=== PATIENT | female | born 1990 | race Caucasian/White ===

== ENCOUNTER → 2016-05-29 | Outpatient (REF) | payer BC | LOC: M LAB REF 13:27 | PROVIDERS: ATTEND Advanced Practice Midwife | DX: R30.0 Dysuria (principal) ==

== ENCOUNTER → 2016-06-14 | Outpatient (REF) | payer OTHER | LOC: M SFHCCLAY 11:43 | PROVIDERS: ATTEND Family Medicine | DX: N39.0 Urinary tract infection, site not specified (principal) ==

== ENCOUNTER → 2016-08-17 | Outpatient (REF) | payer OTHER | LOC: M LAB REF 17:04 | PROVIDERS: ATTEND Advanced Practice Midwife | DX: R30.0 Dysuria (principal) ==

== ENCOUNTER → 2016-09-01 | Outpatient (REF) | payer OTHER ==
[2016-09-04 10:09] LABS: Candida species Negative (Negative); Gardnerella vaginalis Positive (Negative); Trichamonas vaginalis Negative (Negative)
== END ==
LOC: M SMT 16:45
PROVIDERS: ATTEND Specialist
DX: N89.8 Other specified noninflammatory disorders of vagina (principal)

== ENCOUNTER → 2016-09-20 | Outpatient (REF) | payer OTHER ==
[2016-09-20 18:52] LABS: BASO % 0.6 % (0.0-1.0); EOS # 0.1 K/mm3 (0.0-0.50); EOS % 1.7 % (0.0-3.0); LARGE UNSTAINED CELL # 0.1 K/mm3 (0.0-0.4); LARGE UNSTAINED CELL % 2.2 % (0.0-4.0); LYMPH # 1.2 K/mm3 (1.5-6.5); LYMPH % 19.3 % (24.0-44.0); MEAN CORPUSCULAR HEMOGLOBIN 35.3 pg (27.0-33.0); MEAN CORPUSCULAR HGB CONC 33.6 g/dl (32.0-36.5); MEAN CORPUSCULAR VOLUME 104.9 fl (80.0-96.0); MONO # 0.4 K/mm3 (0.0-0.8); MONO % 6.8 % (0.0-5.0); NEUTROPHILS # 3.8 K/mm3 (1.8-7.7); NEUTROPHILS % 69.4 % (36.0-66.0); PLATELET COUNT, AUTOMATED 242 k/mm3 (150-450); RED CELL DISTRIBUTION WIDTH 14.5 % (11.5-14.5); WHITE BLOOD COUNT 5.4 K/mm3 (4.0-10.0)
[2016-09-20 18:54] LABS: FOLATE 16.6 NG/ML; VITAMIN B12 LEVEL 601 PG/ML
[2016-09-20 19:17] LABS: ALBUMIN 4.5 GM/DL (3.2-5.2); ALBUMIN/GLOBULIN RATIO 1.29 (1.00-1.93); ALKALINE PHOSPHATASE 135 U/L (45-117); ALT/SGPT 78 U/L (12-78); ANION GAP 12 MEQ/L (8-16); AST/SGOT 125 U/L (15-37); BILIRUBIN,TOTAL 1.5 MG/DL (0.2-1.0); BLOOD UREA NITROGEN 4 MG/DL (7-18); CALCIUM LEVEL 9.7 MG/DL (8.5-10.1); CARBON DIOXIDE LEVEL 26 MEQ/L (21-32); CHLORIDE LEVEL 96 MEQ/L (98-107); CHOLESTEROL LEVEL 346 MG/DL (<200); GLOMERULAR FILTRATION RATE > 60.0 (>60); GLUCOSE, FASTING 86 MG/DL (70-105); MAGNESIUM LEVEL 1.9 MG/DL (1.8-2.4); POTASSIUM SERUM 3.3 MEQ/L (3.5-5.1); SODIUM LEVEL 134 MEQ/L (136-145); TRIGLYCERIDES LEVEL 97 MG/DL (<150)
[2016-09-20 19:26] LABS: ERYTHROCYTE SEDIMENTATION RATE 3 mm/hr (0-20)
== END ==
LOC: M LABDRAWC 16:28
PROVIDERS: ATTEND Emergency Medicine
DX: R03.0 Elevated blood-pressure reading, without diagnosis of hypertension (principal); K58.0 Irritable bowel syndrome with diarrhea; R00.2 Palpitations; F41.1 Generalized anxiety disorder

== ENCOUNTER → 2016-09-20 | Outpatient (REF) | payer OTHER ==
[2016-09-20 17:59] LABS: CONTROL LINE HCG INT CTR LINE PRESENT
[2016-09-20 18:14] LABS: FREE T4 0.93 NG/DL (0.76-1.46)
== END ==
LOC: M LABDRAWC 16:26
PROVIDERS: ATTEND Advanced Practice Midwife
DX: N91.2 Amenorrhea, unspecified (principal)

== ENCOUNTER → 2016-09-28 | Outpatient (CLI) | payer OTHER ==
--- NOTE | 2016-09-29 06:27 | REP ---
Clinical: Cystitis. Technique: Real time bañuelos scale ultrasound examination of the kidneys using curved array transducer. Findings: The bilateral kidneys are normal in contour, size, echogenicity, and reniform shape without hydronephrosis, nephrolithiasis, cystic or renal mass lesion. No perinephric fluid collections are identified. The bladder is grossly unremarkable and without wall thickening or mass lesion. Right kidney measures 10.2 x 5.3 x 3.9 cm. Left kidney measures 10.6 x 5.1 x 5.7 cm. Impression: Normal renal ultrasound. Signed by Kris Cardona MD 09/29/2016 06:18 A
== END ==
LOC: M RAD 09:00
PROVIDERS: ATTEND Specialist
DX: N30.90 Cystitis, unspecified without hematuria (principal)

== ENCOUNTER 2016-11-02 06:10 | Emergency (ER) | payer OTHER ==
[2016-11-02] MEDS ORDERED: BENT10CA PO (06:20)
[2016-11-02] MEDS ORDERED: PROT1TAB2 PO (06:20)
[2016-11-02] MEDS ORDERED: VITA200016 PO (06:20)
[2016-11-02] MEDS ORDERED: GI COCKTAIL 50ML BTL(HYOSCYAMINE/MAALOX/LIDOCAINE VISCOUS)(1:3:1) PO ONE (07:15)
[2016-11-02] MEDS ORDERED: METOCLOPRAMIDE INJ 10MG/2ML VIAL (J2765) IV ONE (07:15)
[2016-11-02 07:38] LABS: BASO % 0.6 % (0.0-1.0); EOS # 0.1 K/mm3 (0.0-0.50); EOS % 2.4 % (0.0-3.0); LARGE UNSTAINED CELL # 0.1 K/mm3 (0.0-0.4); LARGE UNSTAINED CELL % 1.7 % (0.0-4.0); LYMPH # 0.5 K/mm3 (1.5-6.5); LYMPH % 12.9 % (24.0-44.0); MEAN CORPUSCULAR HEMOGLOBIN 34.3 pg (27.0-33.0); MEAN CORPUSCULAR HGB CONC 33.3 g/dl (32.0-36.5); MONO # 0.4 K/mm3 (0.0-0.8); MONO % 10.4 % (0.0-5.0); NEUTROPHILS # 2.7 K/mm3 (1.8-7.7); PLATELET COUNT, AUTOMATED 160 k/mm3 (150-450); RED CELL DISTRIBUTION WIDTH 13.5 % (11.5-14.5); WHITE BLOOD COUNT 3.7 K/mm3 (4.0-10.0)
[2016-11-02 07:56] LABS: ALBUMIN 4.8 GM/DL (3.2-5.2); ALKALINE PHOSPHATASE 178 U/L (45-117); ALT/SGPT 351 U/L (12-78); ANION GAP 16 MEQ/L (8-16); AST/SGOT 977 U/L (15-37); BILIRUBIN,TOTAL 1.5 MG/DL (0.2-1.0); BLOOD UREA NITROGEN 6 MG/DL (7-18); CARBON DIOXIDE LEVEL 22 MEQ/L (21-32); CHLORIDE LEVEL 97 MEQ/L (98-107); CREATININE FOR GFR 0.54 MG/DL (0.55-1.02); GLOMERULAR FILTRATION RATE > 60.0 (>60); GLUCOSE, FASTING 63 MG/DL (70-105); POTASSIUM SERUM 3.7 MEQ/L (3.5-5.1); SODIUM LEVEL 135 MEQ/L (136-145); TOTAL PROTEIN 8.8 GM/DL (6.4-8.2)
[2016-11-02 08:34] VITALS: BP 144/86
[2016-11-02] MEDS ORDERED: ZOFR4TAB3 PO (08:38)
[2016-11-02] MEDS ORDERED: PYRI1TAB5 PO (08:38)
[2016-11-02] MEDS ORDERED: MACR100C43 PO (08:38)
[2016-11-02] MEDS ORDERED: PHENAZOPYRIDINE 100 MG TAB PO ONE (08:45)
[2016-11-02] MEDS ORDERED: NITROFURANTOIN (MACROBID) 100 MG CAP PO ONE (08:45)
[2016-11-27] MEDS ORDERED: VITA1CAP40 PO (15:15)
[2016-11-27] MEDS ORDERED: DEXI60CA2 PO (15:15)
== END 2016-11-02 09:08 | disposition home or self-care (01) ==
LOC: M ED 06:10
DX: N39.0 Urinary tract infection, site not specified (principal); R11.2 Nausea with vomiting, unspecified; R19.7 Diarrhea, unspecified; R74.8 Abnormal levels of other serum enzymes
CPT/HCPCS: 80053; 81001; 81025; 83690; 85025; 87086; 96374; 99283; J2765

== ENCOUNTER 2016-12-05 13:00 | Outpatient (CLI) | payer OTHER ==
[~2016-12-05] VITALS: Ht 160 cm; Wt 64.4 kg
[~2016-12-05 13:00] MED LIST: BENT10CA PO; DEXI60CA2 PO; MACR100C43 PO; PROT1TAB2 PO; PYRI1TAB5 PO; VITA1CAP40 PO; VITA200016 PO; ZOFR4TAB3 PO
[2016-12-05] MEDS ORDERED: NS 1,000 ML IV ONE (13:30)
[2016-12-05] MEDS ORDERED: PROPOFOL 500 MG/50 ML VIAL As Ordered ONE (14:54)
[2016-12-05] MEDS ORDERED: LIDOCAINE 2% INJ 100 MG/5 ML SDV (FOR ANES.) As Ordered ONE (15:37)
[2016-12-05] MEDS ORDERED: PROPOFOL 200 MG/20 ML VIAL As Ordered ONE (15:43)
--- NOTE | 2016-12-05 15:45 | ROOR ---
Patient Name: Ashli Finney Procedure Date: 12/05/2016 3:24 PM Date of : 1990 Age: 26 Room: [facility] Gender: Female Note Status: Finalized Procedure: Upper GI endoscopy Indications: Epigastric abdominal pain, Dysphagia, Heartburn, Abdominal bloating, Diarrhea Providers: Rex MCKINNEY MD Referring MD: NAZIA GAMA MD Requesting Provider: Medicines: Monitored Anesthesia Care Complications: No immediate complications. Procedure: Pre-Anesthesia Assessment: - The heart rate, respiratory rate, oxygen saturations, blood pressure, adequacy of pulmonary ventilation, and response to care were monitored throughout the procedure. The Endoscope was introduced through the mouth, and advanced to the second part of duodenum. The upper GI endoscopy was accomplished without difficulty. The patient tolerated the procedure well. Findings: The esophagus was normal. The stomach was normal. The examined duodenum was normal. No endoscopic abnormality was evident in the esophagus to explain the patient's complaint of dysphagia. It was decided, however, to proceed with dilation of the entire esophagus. The scope was withdrawn. Dilation was performed with a Jane dilator with no resistance at 54 Fr. The dilation site was examined and showed no change. This was biopsied with a cold forceps for evaluation of eosinophilic esophagitis. Biopsies for histology were taken with a cold forceps in the second portion of the duodenum for evaluation of celiac disease. Impression: - Normal esophagus. No endoscopic esophageal abnormality to explain patient's dysphagia. Esophagus Dilated with 54 F Jane dilator and biopsied to r/o eosinophilic esophagitis.. - Normal stomach. - Normal examined duodenum. - Biopsies were taken with a cold forceps for evaluation of celiac disease. Recommendation: - Continue present medications. - Telephone endoscopist for pathology results in 2 weeks. - Observe patient's clinical course. Rex Mckinney MD Rex MCKINNEY MD 12/05/2016 3:45:11 PM This report has been signed electronically. Number of Addenda: 0 Note Initiated On: 12/05/2016 3:24 PM Estimated Blood Loss: Estimated blood loss: none.
--- NOTE | 2016-12-05 15:55 | ROOR ---
Patient Name: Ashli Finney Procedure Date: 12/05/2016 3:25 PM Date of : 1990 Age: 26 Room: [facility] Gender: Female Note Status: Finalized Procedure: Colonoscopy Indications: Hematochezia, Suspected irritable bowel syndrome Providers: Rex PADRON MD Referring MD: NAZIA GAMA MD Requesting Provider: Medicines: Monitored Anesthesia Care Complications: No immediate complications. Procedure: Pre-Anesthesia Assessment: - The heart rate, respiratory rate, oxygen saturations, blood pressure, adequacy of pulmonary ventilation, and response to care were monitored throughout the procedure. The Colonoscope was introduced through the anus and advanced to 9 cm into the ileum. The colonoscopy was performed without difficulty. The patient tolerated the procedure well. The quality of the bowel preparation was good. Findings: The perianal and digital rectal examinations were normal. Small Internal Hemorrhoids. The entire examined colon appeared normal on direct and retroflexion views. The terminal ileum appeared normal. Impression: - Small Internal Hemorrhoids. - The entire examined colon is normal on direct and retroflexion views. - The examined portion of the ileum was normal. - No specimens collected. Recommendation: - Continue present medications. - Use fiber, for example Citrucel, Fibercon, Konsyl or Metamucil. - Return to referring physician as previously scheduled. Rex Padron MD Rex PADRON MD 12/05/2016 3:54:41 PM This report has been signed electronically. Number of Addenda: 0 Note Initiated On: 12/05/2016 3:25 PM Estimated Blood Loss: Estimated blood loss: none.
[2016-12-05 16:15] VITALS: BP 137/90
== END 2016-12-05 16:22 | disposition home or self-care (01) ==
LOC: M OPP 13:00
PROVIDERS: ATTEND Internal Medicine Gastroenterology
DX: K64.8 Other hemorrhoids (principal); R19.7 Diarrhea, unspecified; R13.10 Dysphagia, unspecified; R14.0 Abdominal distension (gaseous); K21.9 Gastro-esophageal reflux disease without esophagitis; Z79.899 Other long term (current) drug therapy; Z88.0 Allergy status to penicillin; Z88.1 Allergy status to other antibiotic agents; Z88.2 Allergy status to sulfonamides

== ENCOUNTER 2017-08-19 20:38 | Inpatient (IN) | payer OTHER, SELFPAY ==
[2017-08-19] MEDS: NS 1,000 ML IV (21:00)
[2017-08-19 21:02] LABS: BEDSIDE GLUCOSE 118 MG/DL (70-105)
[2017-08-19 21:09] LABS: BASO % 0.2 % (0.0-1.0); EOS # 0.1 10^3/uL (0.0-0.50); EOS % 1.1 % (0.0-3.0); HEMATOCRIT 41.8 % (36.0-47.0); HEMOGLOBIN 14.4 g/dl (12.0-15.5); IMMATURE GRANULOCYTE % 0.7 % (0-3.0); LYMPH # 0.5 10^3/uL (1.5-6.5); LYMPH % 12.1 % (24.0-44.0); MEAN CORPUSCULAR HEMOGLOBIN 34.5 pg (27.0-33.0); MEAN CORPUSCULAR HGB CONC 34.4 g/dl (32.0-36.5); MEAN CORPUSCULAR VOLUME 100.2 fl (80.0-96.0); MONO # 0.4 10^3/uL (0.0-0.8); MONO % 8.7 % (0.0-5.0); NEUTROPHILS # 3.5 10^3/uL (1.8-7.7); NEUTROPHILS % 77.2 % (36.0-66.0); PLATELET COUNT, AUTOMATED 113 10^3/uL (150-450); RED BLOOD COUNT 4.17 10^6/uL (4.00-5.40); RED CELL DISTRIBUTION WIDTH 13.1 % (11.5-14.5); WHITE BLOOD COUNT 4.5 10^3/uL (4.0-10.0)
[2017-08-19 21:17] LABS: CONTROL LINE HCG INT CTR LINE PRESENT; HCG, SERUM QUALITATIVE NEGATIVE (NEGATIVE); INR 0.98; PROTHROMBIN TIME 13.1 SECONDS (12.4-14.5)
[2017-08-19 21:18] LABS: PARTIAL THROMBOPLASTIN TIME 28.9 SECONDS (26.8-37.9)
[2017-08-19 21:27] LABS: ALBUMIN 4.3 GM/DL (3.2-5.2); ALBUMIN/GLOBULIN RATIO 1.23 (1.00-1.93); ALKALINE PHOSPHATASE 175 U/L (45-117); ALT/SGPT 205 U/L (12-78); ANION GAP 13 MEQ/L (8-16); AST/SGOT 638 U/L (7-37); BLOOD UREA NITROGEN 5 MG/DL (7-18); CALCIUM LEVEL 8.1 MG/DL (8.5-10.1); CARBON DIOXIDE LEVEL 26 MEQ/L (21-32); CHLORIDE LEVEL 99 MEQ/L (98-107); CPK CREATINE PHOSPHOKINASE 170 U/L (26-192); CREATININE FOR GFR 0.67 MG/DL (0.55-1.30); GLOMERULAR FILTRATION RATE > 60.0 (>60); GLUCOSE, FASTING 119 MG/DL (70-100); MAGNESIUM LEVEL 1.1 MG/DL (1.8-2.4); POTASSIUM SERUM 3.1 MEQ/L (3.5-5.1); SODIUM LEVEL 138 MEQ/L (136-145); TOTAL PROTEIN 7.8 GM/DL (6.4-8.2); TROPONIN I < 0.02 NG/ML (< 0.10)
[2017-08-19 21:29] LABS: ETHYL ALCOHOL (ETHANOL) < 0.003 % (0.000-0.010)
[2017-08-19 21:32] LABS: CK-MB VALUE MASS 1.1 NG/ML (<3.6); MB/CK RELATIVE INDEX 0.64 (< OR =4)
[2017-08-19 21:36] LABS: LACTIC ACID SEPSIS PROTOCOL 1.4 MMOL/L (0.4-2.0)
[2017-08-19] MEDS: MAG SULF 1GM/100ML (MAG RUN) 1 GM in APPROPRIATE DILUENT 1 EA IV ×2 (21:53→22:40)
[2017-08-19] MEDS: THIAMINE HCL 200 MG/2 ML VIAL (J3411) IV (21:54)
[2017-08-19] MEDS: POTASSIUM CHLORIDE 10 MEQ SR TABLET PO (21:54)
[2017-08-19] MEDS: FOLIC ACID 1 MG TAB PO (21:55)
[2017-08-19] MEDS: MAGNESIUM OXIDE 400 MG TAB (MAG-OX) PO (23:00)
[2017-08-19] MEDS: KCL 20MEQ IN 0.45NS 1000ML 1,000 ML IV (23:15)
[2017-08-19] MEDS ORDERED: ONDANSETRON 4MG/2ML VIAL (J2405) IV (23:15)
[2017-08-19] MEDS: OXAZEPAM 10 MG CAP PO (23:37)
[2017-08-20 00:11] LABS: AMPHETAMINES LEVEL URINE NEGATIVE (NEGATIVE); BARBITURATES URINE NEGATIVE (NEGATIVE); BENZODIAZEPINES URINE NEGATIVE (NEGATIVE); CANNABINOIDS URINE NEGATIVE (NEGATIVE); COCAINE METABOLITE URINE NEGATIVE (NEGATIVE); METHADONE URINE NEGATIVE (NEGATIVE); OPIATES URINE NEGATIVE (NEGATIVE); PHENCYCLIDINE URINE NEGATIVE (NEGATIVE)
[2017-08-20 06:35] LABS: HEMATOCRIT 38.9 % (36.0-47.0); HEMOGLOBIN 13.4 g/dl (12.0-15.5); MEAN CORPUSCULAR HEMOGLOBIN 34.8 pg (27.0-33.0); MEAN CORPUSCULAR HGB CONC 34.4 g/dl (32.0-36.5); PLATELET COUNT, AUTOMATED 101 10^3/uL (150-450); RED BLOOD COUNT 3.85 10^6/uL (4.00-5.40); RED CELL DISTRIBUTION WIDTH 13.3 % (11.5-14.5); WHITE BLOOD COUNT 4.5 10^3/uL (4.0-10.0)
[2017-08-20 07:01] LABS: ALBUMIN 3.9 GM/DL (3.2-5.2); ALBUMIN/GLOBULIN RATIO 1.03 (1.00-1.93); ALKALINE PHOSPHATASE 162 U/L (45-117); ALT/SGPT 187 U/L (12-78); ANION GAP 11 MEQ/L (8-16); AST/SGOT 540 U/L (7-37); BILIRUBIN,TOTAL 1.8 MG/DL (0.2-1.0); BLOOD UREA NITROGEN 3 MG/DL (7-18); CALCIUM LEVEL 8.1 MG/DL (8.5-10.1); CARBON DIOXIDE LEVEL 23 MEQ/L (21-32); CHLORIDE LEVEL 104 MEQ/L (98-107); CK-MB VALUE MASS < 1.0 NG/ML (<3.6); CPK CREATINE PHOSPHOKINASE 185 U/L (26-192); CREATININE FOR GFR 0.46 MG/DL (0.55-1.30); GLOMERULAR FILTRATION RATE > 60.0 (>60); GLUCOSE, FASTING 76 MG/DL (70-100); MAGNESIUM LEVEL 2.2 MG/DL (1.8-2.4); MB/CK RELATIVE INDEX 0.54 (< OR =4); POTASSIUM SERUM 3.8 MEQ/L (3.5-5.1); SODIUM LEVEL 138 MEQ/L (136-145); TOTAL PROTEIN 7.7 GM/DL (6.4-8.2); TROPONIN I < 0.02 NG/ML (< 0.10)
[2017-08-20] MEDS: SENOKOT S TAB PO ×2 (08:51→20:31)
[2017-08-20] MEDS: MAGNESIUM OXIDE 400 MG TAB (MAG-OX) PO ×3 (08:52→20:31)
[2017-08-20] MEDS: THIAMINE 100 MG TAB PO (08:52)
[2017-08-20] MEDS: FOLIC ACID 1 MG TAB PO (08:52)
[2017-08-20] MEDS: MULTIVITAMINS/MINERALS THERAP 1 TAB PO (08:54)
[2017-08-20 11:32] LABS: HEPATITIS B SURFACE ANTIGEN NEGATIVE (NEGATIVE)
[2017-08-20 11:59] LABS: HEPATITIS C VIRUS ABY INDEX < 0.0 INDEX (<0.8)
[2017-08-20 11:59] LABS: HEPATITIS B CORE ANTIBODY IGM NEGATIVE (NEGATIVE)
[2017-08-20 12:02] LABS: HEPATITIS A ANTIBODY IGM NEGATIVE (NEGATIVE)
[2017-08-20] MEDS: KCL 20MEQ IN 0.45NS 1000ML 1,000 ML IV ×2 (12:16→22:00)
[2017-08-20] MEDS: OXAZEPAM 10 MG CAP PO (20:31)
[2017-08-21 04:27] LABS: HEMATOCRIT 40.1 % (36.0-47.0); HEMOGLOBIN 13.5 g/dl (12.0-15.5); MEAN CORPUSCULAR HEMOGLOBIN 34.7 pg (27.0-33.0); MEAN CORPUSCULAR HGB CONC 33.7 g/dl (32.0-36.5); MEAN CORPUSCULAR VOLUME 103.1 fl (80.0-96.0); RED BLOOD COUNT 3.89 10^6/uL (4.00-5.40); RED CELL DISTRIBUTION WIDTH 13.2 % (11.5-14.5); WHITE BLOOD COUNT 3.4 10^3/uL (4.0-10.0)
[2017-08-21 04:56] LABS: ALBUMIN 3.6 GM/DL (3.2-5.2); ALBUMIN/GLOBULIN RATIO 0.88 (1.00-1.93); ALKALINE PHOSPHATASE 185 U/L (45-117); ALT/SGPT 204 U/L (12-78); ANION GAP 7 MEQ/L (8-16); AST/SGOT 484 U/L (7-37); BILIRUBIN,TOTAL 1.6 MG/DL (0.2-1.0); BLOOD UREA NITROGEN 3 MG/DL (7-18); CALCIUM LEVEL 8.7 MG/DL (8.5-10.1); CARBON DIOXIDE LEVEL 26 MEQ/L (21-32); CHLORIDE LEVEL 106 MEQ/L (98-107); CREATININE FOR GFR 0.52 MG/DL (0.55-1.30); GLOMERULAR FILTRATION RATE > 60.0 (>60); GLUCOSE, FASTING 86 MG/DL (70-100); POTASSIUM SERUM 3.8 MEQ/L (3.5-5.1); SODIUM LEVEL 139 MEQ/L (136-145); TOTAL PROTEIN 7.7 GM/DL (6.4-8.2)
[2017-08-21 05:05] LABS: PLATELET COUNT, AUTOMATED 96 10^3/uL (150-450)
[2017-08-21 05:06] LABS: IMMATURE PLATELET FRACTION % 12.1 % (0.0-9.6)
[2017-08-21] MEDS: KCL 20MEQ IN 0.45NS 1000ML 1,000 ML IV (07:38)
[2017-08-21] MEDS: MAGNESIUM OXIDE 400 MG TAB (MAG-OX) PO (08:24)
[2017-08-21] MEDS: THIAMINE 100 MG TAB PO (08:24)
[2017-08-21] MEDS: FOLIC ACID 1 MG TAB PO (08:25)
[2017-08-21] MEDS: SENOKOT S TAB PO (09:00)
[2017-08-21] MEDS ORDERED: PRENATAL VITAMINS CHEWABLE TABLET PO (09:00)
== END 2017-08-21 11:00 | disposition home or self-care (01) | DRG 53 ==
LOC: M ICU 08-20 05:53 → M ED 20:38 → M ED INP 23:09
PROVIDERS: Hospitalist
DX: R56.9 Unspecified convulsions (principal); E83.42 Hypomagnesemia; K70.10 Alcoholic hepatitis without ascites; E87.6 Hypokalemia; R74.0 Nonspecific elevation of levels of transaminase and lactic acid dehydrogenase [LDH]; F10.239 Alcohol dependence with withdrawal, unspecified; Z88.0 Allergy status to penicillin; Z88.2 Allergy status to sulfonamides; Z88.1 Allergy status to other antibiotic agents

== ENCOUNTER 2018-03-03 22:06 | Emergency (ER) | payer MEDICAID, OTHER, SELFPAY ==
[~2018-03-03] VITALS: Ht 157.5 cm; Wt 68.2 kg
[~2018-03-03 22:06] MED LIST changes: +FOLI1TAB5 PO; +MAGN400C3 PO; +OXAZ10CA3 PO; +PREN1CHW6 PO; +THIA100TA PO; -VITA1CAP40 PO; +VITA50005 PO; +ZOFR4TAB14 PO; -ZOFR4TAB3 PO
[2018-03-03] MEDS ORDERED: ONDANSETRON 4MG/2ML VIAL (J2405) IV ONE (22:45)
[2018-03-03] MEDS ORDERED: MULTIVITAMIN -ADULT INJECTION 10 ML, THIAMINE INJection 100 MG, FOLIC ACID 1 MG in NS 1... IV ONE (22:45)
[2018-03-03 22:50] LABS: BASO % 0.6 % (0.0-1.0); EOS % 0.1 % (0.0-3.0); HEMATOCRIT 40.1 % (36.0-47.0); HEMOGLOBIN 13.9 g/dl (12.0-15.5); LYMPH # 0.6 10^3/uL (1.5-6.5); LYMPH % 9.1 % (24.0-44.0); MEAN CORPUSCULAR HEMOGLOBIN 34.5 pg (27.0-33.0); MEAN CORPUSCULAR HGB CONC 34.7 g/dl (32.0-36.5); MEAN CORPUSCULAR VOLUME 99.5 fl (80.0-96.0); MONO # 0.3 10^3/uL (0.0-0.8); MONO % 3.7 % (0.0-5.0); NEUTROPHILS # 5.7 10^3/uL (1.8-7.7); NEUTROPHILS % 86.1 % (36.0-66.0); PLATELET COUNT, AUTOMATED 189 10^3/uL (150-450); RED BLOOD COUNT 4.03 10^6/uL (4.00-5.40); WHITE BLOOD COUNT 6.7 10^3/uL (4.0-10.0)
[2018-03-03] MEDS ORDERED: ACETAMINOPHEN 325 MG TAB PO ONE (23:00)
[2018-03-03 23:08] LABS: HCG, SERUM QUALITATIVE NEGATIVE (NEGATIVE)
[2018-03-03] MEDS ORDERED: PHENobarbital INJ 65 MG/ML VIAL (J2560) IV STA ×2 (23:09→23:41)
[2018-03-03 23:36] LABS: ALBUMIN 4.4 GM/DL (3.2-5.2); ALT/SGPT 149 U/L (12-78); BILIRUBIN,DIRECT 0.5 MG/DL (0.0-0.2); BLOOD UREA NITROGEN 7 MG/DL (7-18); CALCIUM LEVEL 8.8 MG/DL (8.5-10.1); CARBON DIOXIDE LEVEL 18 MEQ/L (21-32); CHLORIDE LEVEL 100 MEQ/L (98-107); CREATININE FOR GFR 0.54 MG/DL (0.55-1.30); GLOMERULAR FILTRATION RATE > 60.0 (>60); GLUCOSE, FASTING 80 MG/DL (70-100); LIPASE 112 U/L (73-393); SODIUM LEVEL 138 MEQ/L (136-145); TOTAL PROTEIN 8.3 GM/DL (6.4-8.2)
[2018-03-04] MEDS ORDERED: PHENobarbital INJ 65 MG/ML VIAL (J2560) IV STA (00:30)
[2018-03-04] MEDS ORDERED: NS 1,000 ML IV ONE (01:45)
[2018-03-04 02:30] VITALS: BP 143/90
== END 2018-03-04 02:58 | disposition home or self-care (01) ==
LOC: M ED 22:06
DX: F10.230 Alcohol dependence with withdrawal, uncomplicated (principal); Z88.0 Allergy status to penicillin; Z88.2 Allergy status to sulfonamides; Z88.1 Allergy status to other antibiotic agents; Z79.899 Other long term (current) drug therapy
CPT/HCPCS: 80048; 80076; 83690; 84703; 85025; 96374; 96375; 96376; 99285; J2405; J2560; J3411

== ENCOUNTER 2018-04-29 19:33 | Inpatient (IN) | payer MEDICAID, OTHER, SELFPAY ==
[~2018-04-29] VITALS: Ht 157.5 cm; Wt 67.5 kg
[2018-04-29] MEDS ORDERED: ZOLO50TA PO (19:59)
[2018-04-29] MEDS ORDERED: VITA100T59 PO (19:59)
[2018-04-29 20:11] LABS: HEMATOCRIT 43.1 % (36.0-47.0); HEMOGLOBIN 15.2 g/dl (12.0-15.5); MEAN CORPUSCULAR HEMOGLOBIN 32.5 pg (27.0-33.0); MEAN CORPUSCULAR HGB CONC 35.3 g/dl (32.0-36.5); MEAN CORPUSCULAR VOLUME 92.3 fl (80.0-96.0); PLATELET COUNT, AUTOMATED 357 10^3/uL (150-450); RED BLOOD COUNT 4.67 10^6/uL (4.00-5.40); WHITE BLOOD COUNT 7.2 10^3/uL (4.0-10.0)
[2018-04-29 20:26] LABS: HCG, SERUM QUALITATIVE NEGATIVE (NEGATIVE)
[2018-04-29 20:30] LABS: AMPHETAMINES LEVEL URINE NEGATIVE (NEGATIVE); BARBITURATES URINE NEGATIVE (NEGATIVE); BENZODIAZEPINES URINE NEGATIVE (NEGATIVE); CANNABINOIDS URINE NEGATIVE (NEGATIVE); COCAINE METABOLITE URINE NEGATIVE (NEGATIVE); METHADONE URINE NEGATIVE (NEGATIVE); OPIATES URINE NEGATIVE (NEGATIVE); PHENCYCLIDINE URINE NEGATIVE (NEGATIVE)
[2018-04-29 20:43] LABS: ACETAMINOPHEN LEVEL < 2.0 UG/ML (10.0-30.0); ALBUMIN 4.4 GM/DL (3.2-5.2); ALT/SGPT 53 U/L (12-78); BILIRUBIN,DIRECT 0.1 MG/DL (0.0-0.2); BILIRUBIN,TOTAL 0.4 MG/DL (0.2-1.0); BLOOD UREA NITROGEN 6 MG/DL (7-18); CALCIUM LEVEL 8.6 MG/DL (8.5-10.1); CARBON DIOXIDE LEVEL 25 MEQ/L (21-32); CHLORIDE LEVEL 104 MEQ/L (98-107); CREATININE FOR GFR 0.61 MG/DL (0.55-1.30); ETHYL ALCOHOL (ETHANOL) 0.393 % (0.000-0.010); GLOMERULAR FILTRATION RATE > 60.0 (>60); GLUCOSE, FASTING 93 MG/DL (70-100); POTASSIUM SERUM 3.5 MEQ/L (3.5-5.1); SALICYLATE LEVEL < 1.7 MG/DL (5.0-30.0); SODIUM LEVEL 143 MEQ/L (136-145); TOTAL PROTEIN 8.1 GM/DL (6.4-8.2)
[2018-04-30] MEDS ORDERED: NS 1,000 ML IV ONE ×3 (00:30→03:30)
[2018-04-30] MEDS ORDERED: OXAZEPAM 15 MG CAP PO ONE ×2 (00:30→06:30)
[2018-04-30] MEDS: FOLIC ACID 1 MG TAB PO SCH (09:14)
[2018-04-30] MEDS: MULTIVITAMINS/MINERALS THERAP 1 TAB PO SCH (09:14)
[2018-04-30] MEDS: THIAMINE 100 MG TAB PO SCH ×2 (09:14→21:00)
[2018-04-30] MEDS ORDERED: SERTRALINE HCL 50 MG TAB PO ONE (09:15)
[2018-04-30] MEDS ORDERED: PREN1CHW4 PO (09:41)
[2018-04-30] MEDS ORDERED: ASCO500T PO (09:41)
[2018-04-30] MEDS ORDERED: PROB1CHW7 PO (09:42)
[2018-04-30] MEDS ORDERED: ACETAMINOPHEN TAB 650MG DOSE (2X325MG) PO PRN (10:15)
[2018-04-30] MEDS ORDERED: MAALOX 30 ML SUSP *UDC PO PRN (10:15)
[2018-04-30] MEDS ORDERED: MOM 30ML SUSPENSION UDC PO PRN (10:15)
[2018-04-30 10:58] VITALS: BP 141/90
[2018-04-30 11:58] VITALS: BP_SYST 140; BP_SYST 141; BP_DIAS 90
[2018-04-30] MEDS ORDERED: LORazepam 2 MG TAB PO PRN (12:00)
[2018-04-30] MEDS: ONDANSETRON 4 MG ORAL DISINTEGRATING TAB (Q0162 PER 1MG) PO PRN (12:11)
[2018-04-30] MEDS: LORazepam 2 MG TAB PO PRN (12:11)
[2018-04-30 16:20] VITALS: BP 137/93
[2018-04-30 18:00] VITALS: BP 137/93
[2018-05-01] MEDS: ONDANSETRON 4 MG ORAL DISINTEGRATING TAB (Q0162 PER 1MG) PO PRN (01:38)
[2018-05-01] MEDS: traZODone 50 MG TAB PO PRN ×2 (01:38→21:46)
[2018-05-01 07:00] VITALS: BP 143/95
[2018-05-01 08:15] VITALS: BP 143/95
[2018-05-01] MEDS: FOLIC ACID 1 MG TAB PO SCH (09:01)
[2018-05-01] MEDS: LORazepam 2 MG TAB PO PRN (09:01)
[2018-05-01] MEDS: MULTIVITAMINS/MINERALS THERAP 1 TAB PO SCH (09:01)
[2018-05-01] MEDS: THIAMINE 100 MG TAB PO SCH ×2 (09:01→21:46)
--- NOTE | 2018-05-01 09:39 | HPEPDOC ---
[facility] Medical History & Physical Date of Admission Apr 30, 2018 History and Physical [facility] ATTENDING: Dr. Mahin Mckeon. HPI: 27yoF admitted to [facility] for Unspecified depressive disorder, being medically examined today. No acute medical complaints today. States she recently had cold symptoms but states they are resolving. Reports some clear rhinorrhea, denies ST, cough, fever, chills. Denies any fevers, chills, weakness, fatigue, [place], CP, SOB, cough, palpitations, abdominal pain, N/V/D or changes in bowel or bladder habits. PMHx: Anxiety depression h/o SI h/o UTI Seizure 08/15 possible alcohol withdrawal. Follows with [facility]. PSHX: tonsillectomy/adenoidectomy. 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 ROS: As noted in HPI, otherwise 11pt ROS of systems reviewed and remarkable only for LMP 04/05/18 per pt. PE: GEN: 27yoF, appears stated age. Well-nourished, well developed. No acute distress. Alert and oriented x 3. Pleasant, interactive. HEENT: Normocephalic, atraumatic. Pupils are equal, round, and reactive to light. Extraocular movements are intact. No nystagmus appreciated. Sclera are nonicteric. Conjunctiva without injection. Nose midline. Nasal turbinates without bogginess. EACs both patent BL. TMs both visualized and bañuelos with good cone of light, no bulging or erythema. No facial asymmetry. Moist mucous membranes. Dentition fair. Pharynx pink and moist, no cobblestoning. Neck supple, trachea midline. No lymphadenopathy or thyromegaly appreciated. CHEST: Regular rate and rhythm, +S1, +S2 LUNGS: Clear to auscultation bilaterally. No wheezes, rales, or rhonchi. Breathing appears symmetric and easy. Patient is speaking in full sentences. No accessory muscle use. ABD: Round, soft, non-tender, non-distended. +Bowel sounds throughout. No rebound or guarding. No costovertebral angle tenderness. EXT: Pulses 2+ bilaterally dorsalis pedis and radial. No lower extremity edema appreciated. SKIN: [place], dry, warm. Capillary refill <2sec. No rashes. NEURO: Alert and oriented x 3. Cranial nerves III-XII are intact. No focal deficits appreciated. EKG: pending ABd U/S 08/15 Enlarged echogenic liver compatible with fatty infiltration. A/P:27yoF admitted to [facility] for Unspecified depressive disorder 1. Psych. Plan per Psychiatry. Obtain baseline EKG to assure the safety of psychiatric medications as they can prolong the QT interval. 2. Transaminitis. Recheck CMP in AM. Hepatitis profile neg 08/15. Abd U/S 08/15 Fatty infiltration. Monitor. 3. H/O Seizure 08/15, possible alcohol withdrawal seizure. Follows with [facility]. Pt is not on anticonvulsants as outpt. Monitor. 4. Follow up with PCP on discharge. 5. Substance use. Management per psychiatry. Continue with MVI, Thiamine, and Folic Acid supplementation. 6. Staff member Cortney JARVIS present throughout exam. Vital Signs Vital Signs Date Time Temp Pulse Resp B/P (MAP) Pulse Ox O2 Delivery O2 Flow Rate FiO2 05/01/18 08:15 88 143/95 05/01/18 07:00 99.0 20 04/30/18 10:58 100 Room Air Laboratory Data Labs 24H Laboratory Tests 2 04/30/18 09:18: Ethyl Alcohol Level 0.056H Home Medications Scheduled Ascorbic Acid (Ascorbic Acid) 500 Mg Tab, 500 MG PO DAILY Lactobacillus Acid/Lactobacill (Probiotic Chewable Childr) 1 Chw Chw, 1 CHW PO DAILY Multivitamins/ ( Gummies/Dha & Fo 0.4-32.5 mg) 1 Chw Chw, 1 CHW PO DAILY Sertraline Hcl (Zoloft) 50 Mg Tab, 50 MG PO DAILY Allergies Coded Allergies: Sulfa Antibiotics (Verified Allergy, Intermediate, rash, 11/27/16) Minocycline (Verified Allergy, Mild, rash, 11/27/16) Penicillins (Verified Allergy, Mild, rash, 11/27/16) Mary Lino May 01, 2018 09:39
[2018-05-01 11:15] VITALS: BP 131/82
--- NOTE | 2018-05-01 12:59 | MHHPEPDOC ---
General Date Of Admission: Apr 30, 2018 Legal Status: 9.39 Chief Complaint "depression and SI." History of Present Illness HISTORY OF THE PRESENT ILLNESS: Patient is a 27 -year-old , female, with no previous psychiatric historian who was admitted for depression and SI with plan to either cut her wrists or crash her car due to mostly her sister coming into her life after not having been since the pt was [age] and creating chaos as her sister can create a lot of chaos b/c she looses her temper and acts out over the smallest things. States that she hit her breaking point. Self medicating mood and anxiety with alcohol, 3 bottles/day. Has a history of alcohol use problems and seizures secondary to alcohol withdrawal. Denies alcohol withdrawal symptoms currently. Thought of her family to prevent herself from acting on her suicidal thoughts. States she's been taking zoloft that has been beneficial but not fully that was started at the end of February by PCP at [facility]. States she still feels depressed and anxious about her home situation and stress with her sister but denies SI. Agreeable to increasing zoloft for greater mood and anxiety/improved. Endorses insomnia and anxiety and agreeable to prn trazodone and anxiety. Denies HI, hallucinations/delusions. Feels safe here. Psychiatric Review of Systems Depression (2 or more weeks): depressed mood, insomnia/hypersomnia (insomnia), feelings of worthlesness, difficulty concentrating, suicidal thoughts Darshana (4 or more days of): denies Psychosis: denies PTSD: denies Anxiety: gen/non-specific anxiety, situational anxiety, stressor related anxiety Anxiety/ 6 months or more of: restlessness, keyed up, difficulty concentrating, sleep disturbance Past Psychiatric History Previous Psychiatric Diagnosis: denies Previous Psychiatric Admissions: denies Suicide Attempts: denies Psychiatric Follow-up: denies Psychiatric medications: denies Past Medical History Head Injury: No Seizures: Yes (seizure secondary alcohol withdrawal) Hospitalizations: No Surgeries: No Family Medical/Psychiatric HX Psychiatric Disorders: No Addiction: No Suicide Attemps/Completions: No Addiction History alcohol (2-3 bottle betty, bal 393 on 04/29/18) Social History Childhood: born and raised [place], good childhood, bother (4yrs older) and one sister (15 yrs older) Abuse/Trauma:denies Current Living Situation: lives in [place] with boyfriend with his 3 daughters Education: [employer] 2 yrs and [employer] 3yr and only a few credits short math or education degree. 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 Social Support: family, boyfriend Legal: denies Marital: in committed relationship, 3 step daughters (6 year old twins and an 8y/o) Mental Status Examination General Appearance: well groomed, appears stated age, hospital scubs/clothing Build: average Demeanor: average, other (angry with night nurses as believes they were looking all thru her phone and called her bank b/c routing number in phone) Eye Contact: average Activity: average, anxious Behavior: cooperative, restless Speech: clear, spontaneous, normal volume, reg/rate,rhythm,volume Mood: depressed, anxious Mood anxious Affect: full, appropriate, labile, anxious Thought Process: logical/linear, intact Thought Content (Delusions): denies SI, HI, AVH, paranoia Thought Content (Other): appears paranoid Thought Content (Aggressive): none reported Perception (Hallucinations): none reported Perception (Other): none reported Cognition (Impairment of): none reported Cognition(Intelligence Est.): average Oriented: Awake, Alert, Oriented times three Insight: fair Judgment: Fair Psychosis: Psychotic Perceptions Diagnoses Major Depression recurrent, moderate with paranoia Anxiety Unspecified Alcohol use d/o Assessment Pt depressed and anxious secondary to problems with her sister and in her relationship that she's been self medicating with alcohol as her zoloft is not working fully. Denies alcohol withdrawal symptoms today. Denies SI/HI, hallucinations, delusions. Slightly paranoid regarding night nursing staff. Feels safe here. Initial Treatment Plan 1. Patient was admitted on a 939 status. 2. Complete history was obtained. 3. With patients permission, family will be contacted and database will be expanded. 4. Patients medication regimen will be reviewed and changed accordingly. 5. Patient will be provided with protected environment. 6. Patient will be treated with individual, group, and milieu therapies. 7. Patient will receive supportive psych-education. 8. Discharge planning will commence immediately. 9. Outpatient follow-up treatment will be strongly recommended. 10. The initial treatment plan will focus initially on: * Depression. * Risk for suicide. * Substance abuse. 11. Increase zoloft to 100mg daily. Hydroxyzine 25mg q6hr prn anxeity, trazodone 50mg qhs prn insomnia 12. [facility] protocol for alcohol withdrawal ESTIMATED LENGTH OF STAY: 3-5 DAYS. TIME SPENT COUNSELING AND COORDINATING INITIAL CARE: 60 minutes. Vital Signs Vital Signs Date Time Temp Pulse Resp B/P (MAP) Pulse Ox O2 Delivery O2 Flow Rate FiO2 05/01/18 08:15 88 143/95 05/01/18 07:00 99.0 20 04/30/18 10:58 100 Room Air Medications Scheduled Ascorbic Acid (Ascorbic Acid) 500 Mg Tab, 500 MG PO DAILY, (Reported) Lactobacillus Acid/Lactobacill (Probiotic Chewable Childr) 1 Chw Chw, 1 CHW PO DAILY, (Reported) Multivitamins/ ( Gummies/Dha & Fo 0.4-32.5 mg) 1 Chw Chw, 1 CHW PO DAILY, (Reported) Sertraline Hcl (Zoloft) 50 Mg Tab, 50 MG PO DAILY, (Reported) Allergies Coded Allergies: Sulfa Antibiotics (Verified Allergy, Intermediate, rash, 11/27/16) Minocycline (Verified Allergy, Mild, rash, 11/27/16) Penicillins (Verified Allergy, Mild, rash, 11/27/16) VIOLETA MONAHAN DO May 01, 2018 12:59 pm
[2018-05-01] MEDS ORDERED: SERTRALINE 100 MG TAB PO ONE (13:00)
[2018-05-01 16:50] VITALS: BP 150/90
[2018-05-01] MEDS: hydrOXYzine 25 MG TAB PO PRN (17:14)
--- NOTE | 2018-05-01 17:51 | ECGEPIP ---
Stationary ECG Study [facility] Test Date: 2018-05-01 Pat Name: LILIANA RITCHIE Department: Room: [place] [address] Gender: F Appeals Court Associate Justice: MEY : 1990 Requested By: Mary Lino Order Number: [id number] Reading MD: Rg Kate Measurements Intervals Clarita Rate: 86 P: 51 TN: 163 QRS: 25 QRSD: 82 T: 25 QT: 352 QTc: 423 Interpretive Statements Normal sinus rhythm Slow precordial R-wave progression Nonspecific right precordial ST/T-wave abnormalities from 08/19/17. Electronically Signed On 05-01-2018 17:50:30 EST by Rg Kate
[2018-05-01 18:00] VITALS: BP 150/90
[2018-05-02 06:21] VITALS: BP 132/62
[2018-05-02 07:35] VITALS: BP 132/62
[2018-05-02] MEDS: THIAMINE 100 MG TAB PO SCH ×2 (09:55→20:47)
[2018-05-02] MEDS: SERTRALINE 100 MG TAB PO SCH (09:55)
[2018-05-02] MEDS: MULTIVITAMINS/MINERALS THERAP 1 TAB PO SCH (09:55)
[2018-05-02] MEDS: FOLIC ACID 1 MG TAB PO SCH (09:55)
--- NOTE | 2018-05-02 10:07 | MHIPNPDOC ---
[facility] Progress Note Progress Note DATE OF SERVICE: 05/02/18 HISTORY: Patient is a 27 -year-old , female, with no previous psychiatric historian who was admitted for depression and SI with plan to either cut her wrists or crash her car due to mostly her sister coming into her life after not having been since the pt was [age] and creating chaos as her sister can create a lot of chaos b/c she looses her temper and acts out over the smallest things. States that she hit her breaking point. Self medicating mood and anxiety with alcohol, 3 bottles/day. Has a history of alcohol use problems and seizures secondary to alcohol withdrawal. Denies alcohol withdrawal symptoms currently. Thought of her family to prevent herself from acting on her suicidal thoughts. States she's been taking zoloft that has been beneficial but not fully that was started at the end of February by PCP at [facility]. States she still feels depressed and anxious about her home situation and stress with her sister but denies SI. Agreeable to increasing zoloft for greater mood and anxiety/improved. Endorses insomnia and anxiety and agreeable to prn trazodone and anxiety. Denies HI, hallucinations/delusions. Feels safe here. VITAL SIGNS: See below. NEW TEST RESULTS: See below. CURRENT MEDICATIONS: See below. MENTAL STATUS EXAMINATION: General Appearance: well groomed, appears stated age, hospital scrubs/clothing Build: average Demeanor: average Eye Contact: average Activity: average, anxious Behavior: cooperative, restless Speech: clear, spontaneous, normal volume, reg/rate,rhythm,volume Mood: less depressed and anxious Mood anxious Affect: full, appropriate, less anxious Thought Process: logical/linear, intact Thought Content (Delusions): denies SI, HI, AVH, paranoia Thought Content (Other): none reported Thought Content (Aggressive): none reported Perception (Hallucinations): none reported Perception (Other): none reported Cognition (Impairment of): none reported Cognition(Intelligence Est.): average Oriented: Awake, Alert, Oriented times three Insight: fair Judgment: Fair Psychosis: none reported DIAGNOSES: Major Depression recurrent, moderate with paranoia Anxiety Unspecified Alcohol use d/o ASSESSMENT:Pt seen and states that her mood is better . Spoke with pt about belief night nurses were looking all thru her phone and calling her bank b/c routing number in phone. Told pt that I discussed it with nursing staff yesterday and they were not looking thru her phone but probably just over heard them talking about most likely they're own phones and that the only reason her bank routing number (not the account number) is obtained is for billing purposes. She felt satisfied with the explanation. States she's being social on the milieu and attending groups which is beneficial. States she slept well last night. Feels she is tolerating her medications and they're beneficial. She is attending groups and finding them helpful. She denies insomnia, SI/HI, hallucinations, delusions. Pt feels safe here. MANAGEMENT PLAN: continue current plan Medications: zoloft to 100mg daily Hydroxyzine 25mg q6hr prn anxeity trazodone 50mg qhs prn insomnia CIWA protocol for alcohol withdrawal TIME SPENT: 30 minutes. Vital Signs Vital Signs Date Time Temp Pulse Resp B/P (MAP) Pulse Ox O2 Delivery O2 Flow Rate FiO2 05/02/18 06:21 97.6 87 14 132/62 (85) Room Air 05/01/18 18:00 100 Current Medications Current Medications Acetaminophen (Tylenol Tab) 650 mg Q6HP PRN PO HEADACHE or DISCOMFORT; Start 04/30/18 at 10:15 Al Hydrox/Mg Hydrox/Simethicone (Mylanta) 30 ml Q4HP PRN PO HEARTBURN/INDIGESTION; Start 04/30/18 at 10:15 Folic Acid (Folic Acid) 1 mg DAILY PO Last administered on 05/01/18at 09:01; Start 04/30/18 at 09:00 Home Med (Med Rec Complete!) ASDIRECTED XX ; Start 04/30/18 at 09:45; Stop 04/30/18 at 09:45; Status DC Hydroxyzine HCl (Atarax) 25 mg Q6HP PRN PO ANXIETY Last administered on 05/01/18at 17:14; Start 05/01/18 at 13:00 Lorazepam (Ativan) 2 mg ASDIRECTED PRN PO SEE PROTOCOL Last administered on 05/01/18at 09:01; Start 04/30/18 at 08:00 Lorazepam (Ativan) 2 mg ASDIRECTED PRN PO SEE PROTOCOL; Start 04/30/18 at 12:00; Status Cancel Magnesium Hydroxide (Milk Of Magnesia) 30 ml DAILYPRN PRN PO CONSTIPATION; Start 04/30/18 at 10:15 Multivitamins (Theragram-M) 1 tab DAILY PO Last administered on 05/01/18at 09:01; Start 04/30/18 at 09:00 Ondansetron HCl (Zofran Odt) 4 mg Q6HP PRN PO NAUSEA OR VOMITING Last administered on 05/01/18at 01:38; Start 04/30/18 at 12:00 Sertraline HCl (Zoloft) 100 mg DAILY PO ; Start 05/02/18 at 09:00 Thiamine HCl (Thiamine HCl) 100 mg BID PO Last administered on 05/01/18at 21:46; Start 04/30/18 at 09:00; Stop 05/03/18 at 08:59 Trazodone HCl (Desyrel) 50 mg QHSP PRN PO INSOMNIA Last administered on 05/01/18at 21:46; Start 04/30/18 at 10:15 Allergies Coded Allergies: Sulfa Antibiotics (Verified Allergy, Intermediate, rash, 11/27/16) Minocycline (Verified Allergy, Mild, rash, 11/27/16) Penicillins (Verified Allergy, Mild, rash, 11/27/16) VIOLETA MONAHAN DO May 02, 2018 10:07 am
[2018-05-02 15:35] VITALS: BP 130/72
[2018-05-02 18:00] VITALS: BP 128/77
[2018-05-02] MEDS: traZODone 50 MG TAB PO PRN (20:47)
[2018-05-02] MEDS: hydrOXYzine 25 MG TAB PO PRN (20:47)
[2018-05-03 06:15] VITALS: BP 117/72
--- NOTE | 2018-05-03 08:40 | MHDSPDOC ---
[facility] Discharge Summary Discharge Summary DATE OF ADMISSION: Apr 30, 2018 at 10:11 am DATE OF DISCHARGE: May 03, 2018 DISCHARGE DIAGNOSES: Major Depression recurrent, moderate without psychosis Anxiety Unspecified Alcohol use d/o REASON FOR ADMISSION: Patient is a 27 -year-old , female, with no previous psychiatric historian who was admitted for depression and SI with plan to either cut her wrists or crash her car due to mostly her sister coming into her life after not having been since the pt was [age] and creating chaos as her sister can create a lot of chaos b/c she looses her temper and acts out over the smallest things. States that she hit her breaking point. Self medicating mood and anxiety with alcohol, 3 bottles/day. Has a history of alcohol use problems and seizures secondary to alcohol withdrawal. Denies alcohol withdrawal symptoms currently. Thought of her family to prevent herself from acting on her suicidal thoughts. States she's been taking zoloft that has been beneficial but not fully that was started at the end of February by PCP at [facility]. States she still feels depressed and anxious about her home situation and stress with her sister but denies SI. Agreeable to increasing zoloft for greater mood and anxiety/improved. Endorses insomnia and anxiety and agreeable to prn trazodone and anxiety. Denies HI, hallucinations/delusions. Feels safe here. CONSULTANTS INVOLVED: none TREATMENT AND PROGRESS ON THE UNIT : Pt was admitted to [facility], seen for psychiatric assessment and her outpatient zoloft was increased to 100mg daily for mood and anxiety. She was provided vistaril 25mg q6hr prn anxiety and trazodone 50mg qhs prn insomnia. She was monitored for alcohol withdrawal symptoms and placed on a ciwa protocol during her admission and only required ativan once when admitted to the unit for alcohol withdrawal. She has been without ativan for over 24hrs and experienced no alcohol withdrawal symptoms. Pt found her medications beneficial and tolerated them well. She attended groups daily during her stay. Her symptoms improved with treatment. On day of discharge she denied depression, anxiety, insomnia, SI/HI, hallucinations, delusions, paranoia, psychosis, alcohol withdrawal symptoms. She was discharged home after family meeting with her boyfriend she lives with with follow-up at [facility]. She felt safe for discharge. DISCHARGE ASSESSMENT: Pt seen and states that her mood is good and that she feels ready to be discharged home . States she's been social on the milieu and attending groups which has been beneficial. States she slept well last night. Feels she is tolerating her medications and they're beneficial. She is attending groups and finding them helpful. She denies depression, anxiety, insomnia, SI/HI, hallucinations, delusions, paranoia, psychosis, alcohol withdrawal symptoms. Pt feels safe to be discharged home today. MENTAL STATUS EXAMINATION ON DISCHARGE: General Appearance: well groomed, appears stated age, hospital scrubs/clothing Build: average Demeanor: average Eye Contact: average Activity: average, calm Behavior: cooperative Speech: clear, spontaneous, normal volume, reg/rate,rhythm,volume Mood: euthymic, full range, bright Mood good Affect: full, appropriate, euthymic, bright Thought Process: logical/linear, intact Thought Content (Delusions): denies SI, HI, AVH, denies paranoia Thought Content (Other): none reported Thought Content (Aggressive): none reported Perception (Hallucinations): none reported Perception (Other): none reported Cognition (Impairment of): none reported Cognition(Intelligence Est.): average Oriented: Awake, Alert, Oriented times three Insight: good Judgment: good Psychosis: none reported MEDICATIONS ON DISCHARGE: zoloft to 100mg daily Hydroxyzine 25mg q6hr prn anxeity trazodone 50mg qhs prn insomnia PLAN/FOLLOWUP ARRANGEMENTS: D/c home with follow-up at [facility]. The amount of time spent in the coordination of care for this patient was approximately 30 minutes. Vital Signs/I&Os Vital Signs Date Time Temp Pulse Resp B/P (MAP) Pulse Ox O2 Delivery O2 Flow Rate FiO2 05/03/18 06:15 98.6 72 12 117/72 (87) Room Air 05/01/18 18:00 100 Medications Scheduled Ascorbic Acid (Ascorbic Acid) 500 Mg Tab, 500 MG PO DAILY, (Reported) Lactobacillus Acid/Lactobacill (Probiotic Chewable Childr) 1 Chw Chw, 1 CHW PO DAILY, (Reported) Multivitamins/ ( Gummies/Dha & Fo 0.4-32.5 mg) 1 Chw Chw, 1 CHW PO DAILY, (Reported) Sertraline Hcl (Zoloft) 50 Mg Tab, 50 MG PO DAILY, (Reported) Allergies Coded Allergies: Sulfa Antibiotics (Verified Allergy, Intermediate, rash, 11/27/16) Minocycline (Verified Allergy, Mild, rash, 11/27/16) Penicillins (Verified Allergy, Mild, rash, 11/27/16) VIOLETA MONAHAN DO May 03, 2018 8:40 am
[2018-05-03] MEDS ORDERED: SERT-138 PO (08:42)
[2018-05-03] MEDS ORDERED: TRAZO50TA PO (08:42)
[2018-05-03] MEDS ORDERED: HYDR-3363 PO (08:42)
[2018-05-03] MEDS: SERTRALINE 100 MG TAB PO SCH (08:50)
[2018-05-03] MEDS: FOLIC ACID 1 MG TAB PO SCH (08:50)
[2018-05-03] MEDS: MULTIVITAMINS/MINERALS THERAP 1 TAB PO SCH (08:50)
== END 2018-05-03 11:45 | disposition home or self-care (01) | DRG 751 ==
LOC: M ED 19:33 → M ED INP 04-30 10:11 → M PSY 04-30 10:45
PROVIDERS: ADMIT Psychiatry & Neurology Psychiatry; ATTEND Psychiatry & Neurology Psychiatry
DX: F33.1 Major depressive disorder, recurrent, moderate (principal); R45.851 Suicidal ideations; F10.10 Alcohol abuse, uncomplicated; F41.9 Anxiety disorder, unspecified; Z79.899 Other long term (current) drug therapy; Z88.2 Allergy status to sulfonamides; Z88.0 Allergy status to penicillin; Z88.8 Allergy status to other drugs, medicaments and biological substances

== ENCOUNTER 2018-05-18 14:46 | Observation (INO) | payer MEDICAID ==
[~2018-05-18] VITALS: Ht 160 cm; Wt 64.5 kg
[~2018-05-18 14:46] MED LIST changes: +ASCO500T PO; +FOLI1TAB11 PO; -FOLI1TAB5 PO; +HYDR-3363 PO; +PREN1CHW4 PO; +PROB1CHW7 PO; +SERT-138 PO; +TRAZO50TA PO; +VITA100T59 PO; +ZOLO50TA PO
[2018-05-18] MEDS ORDERED: ATIV1TAB10 PO (14:53)
[2018-05-18] MEDS ORDERED: LORazepam 2 MG TAB PO PRN (15:30)
[2018-05-18 15:48] LABS: HEMATOCRIT 43.4 % (36.0-47.0); HEMOGLOBIN 15.3 g/dl (12.0-15.5); MEAN CORPUSCULAR HEMOGLOBIN 31.9 pg (27.0-33.0); MEAN CORPUSCULAR HGB CONC 35.3 g/dl (32.0-36.5); MEAN CORPUSCULAR VOLUME 90.4 fl (80.0-96.0); PLATELET COUNT, AUTOMATED 560 10^3/uL (150-450); WHITE BLOOD COUNT 8.6 10^3/uL (4.0-10.0)
[2018-05-18] MEDS ORDERED: FOLIC ACID 1 MG TAB PO ONE (16:00)
[2018-05-18 16:03] LABS: HCG, SERUM QUALITATIVE NEGATIVE (NEGATIVE)
[2018-05-18 16:04] LABS: AMPHETAMINES LEVEL URINE NEGATIVE (NEGATIVE); BARBITURATES URINE NEGATIVE (NEGATIVE); BENZODIAZEPINES URINE NEGATIVE (NEGATIVE); CANNABINOIDS URINE NEGATIVE (NEGATIVE); COCAINE METABOLITE URINE NEGATIVE (NEGATIVE); METHADONE URINE NEGATIVE (NEGATIVE); OPIATES URINE NEGATIVE (NEGATIVE); PHENCYCLIDINE URINE NEGATIVE (NEGATIVE)
[2018-05-18 16:24] LABS: ACETAMINOPHEN LEVEL < 2.0 UG/ML (10.0-30.0); ALBUMIN 4.3 GM/DL (3.2-5.2); ALT/SGPT 84 U/L (12-78); BILIRUBIN,DIRECT 0.3 MG/DL (0.0-0.2); BILIRUBIN,TOTAL 0.7 MG/DL (0.2-1.0); BLOOD UREA NITROGEN 10 MG/DL (7-18); CALCIUM LEVEL 8.7 MG/DL (8.5-10.1); CARBON DIOXIDE LEVEL 22 MEQ/L (21-32); CHLORIDE LEVEL 101 MEQ/L (98-107); CREATININE FOR GFR 0.75 MG/DL (0.55-1.30); GLOMERULAR FILTRATION RATE > 60.0 (>60); GLUCOSE, FASTING 87 MG/DL (70-100); POTASSIUM SERUM 3.4 MEQ/L (3.5-5.1); SALICYLATE LEVEL < 1.7 MG/DL (5.0-30.0); SODIUM LEVEL 140 MEQ/L (136-145); THYROID STIMULATING HORMONE 0.729 uIU/ML (0.358-3.740)
[2018-05-18] MEDS ORDERED: HYDR-3363 PO (16:40)
[2018-05-18] MEDS ORDERED: POTASSIUM CHLORIDE 10 MEQ SR TABLET PO ONE ×2 (18:00→19:00)
[2018-05-18] MEDS ORDERED: MAG SULF 1GM/100ML (MAG RUN) 1 GM in APPROPRIATE DILUENT 1 EA IV ONE ×6 (18:00→21:00)
[2018-05-18 18:13] LABS: MAGNESIUM LEVEL 1.7 MG/DL (1.8-2.4)
[2018-05-18] MEDS ORDERED: MULTIVITAMIN -ADULT INJECTION 10 ML, THIAMINE INJection 100 MG, FOLIC ACID 1 MG in NS 1... IV ONE ×2 (18:45→20:25)
[2018-05-18] MEDS ORDERED: ONDANSETRON 4MG/2ML VIAL (J2405) IV ONE (18:45)
[2018-05-18] MEDS ORDERED: chlordiazePOXIDE 25 MG CAP PO SCH (19:00)
[2018-05-18] MEDS ORDERED: LORazepam 2 MG/ML VIAL (J2060) IV PRN (19:00)
[2018-05-18] MEDS ORDERED: hydrOXYzine 25 MG TAB PO PRN (19:00)
[2018-05-18] MEDS ORDERED: ONDANSETRON 4MG/2ML VIAL (J2405) IV PRN (19:00)
--- NOTE | 2018-05-18 20:02 | HPE ---
DATE OF ADMISSION: 05/18/2018 28-year-old female with past medical history of depression and alcoholism, history of alcohol withdrawal seizures, presents to the emergency room for detox. The patient apparently had a shot of Vodka on the way because she felt like she was going into withdrawal, which was also her last drink. She normally drinks two bottles of wine a day. She was given a banana bag and was placed on Clinical Gautier Withdrawal Assessment (CIWA) protocol and given Ativan 2 mg. At this time, she is still tachycardiac, but she appears in mild withdrawal. So she will be admitted for further detox. She was also given a bag of IV magnesium and 40 of by mouth potassium chloride in the emergency room (ER). Again past history of depression, chronic alcoholism. She had drug allergies to MINOCYCLINE, PENICILLIN and SULFA drugs. FAMILY HISTORY: Noncontributory. SOCIAL HISTORY: The patient drinks approximately three bottles of wine a day daily. Denies tobacco or drug use. MEDICATIONS SHE TAKES HOME ARE FOLLOWS: - ascorbic acid 500 mg orally daily - hydroxyzine 25 mg orally every 6 hours as needed - sertraline 100 mg orally daily REVIEW OF SYSTEMS: Negative for all 10 review of systems, except what is mentioned in the history of present illness. Vital signs: Blood pressure is 128/73, heart rate is 110 and regular, respiratory rate is 18, temperature is 99.1, oxygen saturation is 100% on room air. Head: Atraumatic, normocephalic. Neck: Supple. No jugular venous distension (JVD). Lungs: Clear to auscultation. S1, S2 audible. No murmurs appreciated. Abdomen: Soft. Positive bowel sounds. No pedal edema. Skin intact. Neurological examination: The patient wake, alert, oriented times three. LABORATORY: White blood count (WBC) 8.6, hemoglobin 15.3, hematocrit 43.4, platelets are 560,000. Sodium 140, potassium 3.4, chloride 101, CO2 22, BUN 10, creatinine 0.75, glucose 87, magnesium 1.7, AST 161, ALT 84, thyroid simulating hormone (TSH) is 0.729. Urine toxicology screen was negative. IMPRESSION: 1. Alcohol withdrawal. 2. Hyperkalemia. 3. Hypomagnesemia. PLAN: The patient is to be admitted to the PCU. Will initiate Librium protocol to aid in her detox process. Will replete her potassium, magnesium and continue her preadmission medications.
[2018-05-18] MEDS ORDERED: THIAMINE 100 MG TAB PO SCH (21:00)
[2018-05-18 21:05] VITALS: BP 130/88
[2018-05-18 22:00] VITALS: BP 129/75
[2018-05-18 22:56] VITALS: BP 129/75
[2018-05-19] VITALS (10 sets, daily range): BP systolic 117–139; BP diastolic 63–84
[2018-05-19] MEDS: chlordiazePOXIDE 25 MG CAP PO SCH ×5 (01:13→19:18)
[2018-05-19] MEDS: NS 1,000 ML IV SCH ×4 (02:54→19:25)
[2018-05-19 06:28] LABS: BLOOD UREA NITROGEN 7 MG/DL (7-18); CALCIUM LEVEL 7.7 MG/DL (8.5-10.1); CARBON DIOXIDE LEVEL 22 MEQ/L (21-32); CHLORIDE LEVEL 105 MEQ/L (98-107); CREATININE FOR GFR 0.52 MG/DL (0.55-1.30); GLOMERULAR FILTRATION RATE > 60.0 (>60); GLUCOSE, FASTING 52 MG/DL (70-100); POTASSIUM SERUM 3.4 MEQ/L (3.5-5.1); SODIUM LEVEL 139 MEQ/L (136-145)
[2018-05-19] MEDS ORDERED: POTASSIUM CHLORIDE 10 MEQ SR TABLET PO ONE (07:15)
[2018-05-19 07:31] LABS: MAGNESIUM LEVEL 2.2 MG/DL (1.8-2.4)
[2018-05-19] MEDS ORDERED: FOLIC ACID 1 MG TAB PO SCH ×2 (09:00)
[2018-05-19] MEDS ORDERED: SERTRALINE 100 MG TAB PO SCH (09:00)
[2018-05-19] MEDS ORDERED: THIAMINE 100 MG TAB PO SCH (09:00)
[2018-05-19] MEDS ORDERED: MULTIVITAMINS/MINERALS THERAP 1 TAB PO SCH ×2 (09:00)
[2018-05-19] MEDS ORDERED: ASCORBIC ACID 500 MG TAB PO SCH (09:00)
--- NOTE | 2018-05-19 13:43 | IPNPDOC ---
Text Note Date of Service The patient was seen on 05/19/18. NOTE Subjective: Patient is a 28-year-old female with a PMHx of Depression and chronic alcoholism who presented to the emergency room after she wanted to receive detox for her alcohol. Patient was admitted to the hospital service for further evaluation and treatment. Patient was seen and examined at the bedside. Patient denies any nausea, vomiting, abdominal pain, constipation, diarrhea or discomfort with urination. She denies chest pain, shortness breath, palpitations. She notes that her tremors have been improving. Objective: Vitals (See below) General: Lying in bed, no acute distress, comfortable, AAOx3 HEENT: NC, AT CVS: RRR, +S1S2 Lungs: Fair air entry b/l, -w/r/r Abdomen: Soft, ND, NT Extremities: - Edema, - Calf tenderness Assessment and plan: Alcohol withdrawal - Currently patient notes that her tremors have been improving - Physical without any abnormal findings - Labs unrevealing - c/w Librium taper Tachycardia / Hypertension - Review of systems negative for any source of infection - Patient remains afebrile and hemodynamically stable - No leukocytosis - c/w IV fluid hydration - Will start low dose Metoprolol Alcohol dependence - c/w Thiamine, Folate, MVI Electrolyte abnormalities - Will supplement Depression - c/w Sertraline DVT prophylaxis - c/w SCDs VS,Fishbone, I+O VS, Fishbone, I+O Laboratory Tests 05/18/18 15:42 Red Blood Count 4.80, Mean Corpuscular Volume 90.4, Mean Corpuscular Hemoglobin 31.9, Mean Corpuscular Hemoglobin Concent 35.3, Red Cell Distribution Width 12.4 05/19/18 04:39 Calcium Level 7.7 L Vital Signs Date Time Temp Pulse Resp B/P (MAP) Pulse Ox O2 Delivery O2 Flow Rate FiO2 05/19/18 12:00 97 120/73 05/19/18 11:56 99.7 18 99 Room Air I&O- Last 24 Hours up to 6 AM 05/19/18 06:00 Intake Total 2046.2 ml Output Total 0 ml Balance 2046.2 ml LATOYA GRIMES MD May 19, 2018 13:43
[2018-05-19] MEDS: METOPROLOL TART 12.5 MG PER 1/2 TAB PO SCH ×2 (13:55→22:03)
[2018-05-19] MEDS ORDERED: chlordiazePOXIDE 25 MG CAP PO SCH ×2 (21:00→23:00)
[2018-05-20] VITALS: BP 130/91
--- NOTE | 2018-05-20 01:46 | IPNPDOC ---
Text Note Date of Service The patient was seen on 05/20/18. NOTE informed by nurse at 1:43 am on 05/20/18 that patient wanted to sign out against medical advice. Pt is alert and oriented X 3 judgement appears intact. Pt is aware of the risk of signing out against medical advise. She was informed of withdrawals, seizures, . Patient acknowledge the risk and chose to sign against medical advice. Pt advised to return to ER with any change in condition. Pt advised to follow up with her primary care provider. VS,Fishbone, I+O VS, Fishbone, I+O Laboratory Tests 05/19/18 04:39 Calcium Level 7.7 L Vital Signs Date Time Temp Pulse Resp B/P (MAP) Pulse Ox O2 Delivery O2 Flow Rate FiO2 05/19/18 22:03 97 117/76 05/19/18 20:00 98.3 20 98 Room Air I&O- Last 24 Hours up to 6 AM 05/20/18 06:00 Intake Total 2040 ml Output Total 1700 ml Balance 340 ml SUNDAY,EASTON ROSALES May 20, 2018 01:46
[2018-05-20] MEDS ORDERED: chlordiazePOXIDE 25 MG CAP PO SCH (21:00)
[2018-05-21] MEDS ORDERED: chlordiazePOXIDE 25 MG CAP PO SCH (23:00)
== END 2018-05-20 01:39 | disposition left against medical advice (07) ==
LOC: M ED 14:46 → M ED INP 18:57 → M PCU 21:04
PROVIDERS: ADMIT Internal Medicine; ATTEND Internal Medicine
DX: F10.239 Alcohol dependence with withdrawal, unspecified (principal); Z53.21 Procedure and treatment not carried out due to patient leaving prior to being seen by health care provider; F32.9 Major depressive disorder, single episode, unspecified; E87.5 Hyperkalemia; E83.42 Hypomagnesemia; Z88.0 Allergy status to penicillin; Z88.2 Allergy status to sulfonamides; Z79.899 Other long term (current) drug therapy
CPT/HCPCS: 36415; 80048; 80076; 80307; 83735; 84443; 84703; 85027; 96361; 96374; 99285; G0480; J2405; J3411; J3475

== ENCOUNTER → 2018-06-10 | Outpatient (REF) | payer OTHER ==
[~2018-06-10] MED LIST changes: +ATIV1TAB10 PO
[2018-06-10 18:16] LABS: BASO % 0.3 % (0.0-1.0); EOS # 0.2 10^3/uL (0.0-0.50); EOS % 2.6 % (0.0-3.0); HEMATOCRIT 41.9 % (36.0-47.0); HEMOGLOBIN 13.7 g/dl (12.0-15.5); LYMPH # 1.6 10^3/uL (1.5-4.5); LYMPH % 27.7 % (24.0-44.0); MEAN CORPUSCULAR HEMOGLOBIN 30.8 pg (27.0-33.0); MEAN CORPUSCULAR HGB CONC 32.7 g/dl (32.0-36.5); MEAN CORPUSCULAR VOLUME 94.2 fl (80.0-96.0); MONO # 0.4 10^3/uL (0.0-0.8); MONO % 7.5 % (0.0-5.0); NEUTROPHILS # 3.5 10^3/uL (1.8-7.7); NEUTROPHILS % 61.6 % (36.0-66.0); PLATELET COUNT, AUTOMATED 356 10^3/uL (150-450); RED BLOOD COUNT 4.45 10^6/uL (4.00-5.40); WHITE BLOOD COUNT 5.7 10^3/uL (4.0-10.0)
[2018-06-10 18:29] LABS: ALBUMIN 4.1 GM/DL (3.2-5.2); ALT/SGPT 36 U/L (12-78); BILIRUBIN,DIRECT 0.1 MG/DL (0.0-0.2); BILIRUBIN,TOTAL 0.5 MG/DL (0.2-1.0); BLOOD UREA NITROGEN 5 MG/DL (7-18); CALCIUM LEVEL 9.2 MG/DL (8.5-10.1); CARBON DIOXIDE LEVEL 29 MEQ/L (21-32); CHLORIDE LEVEL 101 MEQ/L (98-107); CHOLESTEROL LEVEL 322 MG/DL (<200); CHOLESTEROL RISK RATIO 3.926 (<5); CREATININE FOR GFR 0.51 MG/DL (0.55-1.30); FREE T4 0.95 NG/DL (0.76-1.46); GLOMERULAR FILTRATION RATE > 60.0 (>60); GLUCOSE, FASTING 77 MG/DL (70-100); HDL CHOLESTEROL 82 MG/DL (>40); LDL CHOLESTEROL 223 MG/DL (<100); MAGNESIUM LEVEL 1.6 MG/DL (1.8-2.4); NON-HDL-C 240 MG/DL; SODIUM LEVEL 137 MEQ/L (136-145); TOTAL PROTEIN 7.4 GM/DL (6.4-8.2); TRIGLYCERIDES LEVEL 87 MG/DL (<150)
[2018-06-10 18:45] LABS: HEMOGLOBIN A1c 4.8 %
== END ==
LOC: M SFHCCLAY 11:01
PROVIDERS: ATTEND Physician Assistant
DX: R74.8 Abnormal levels of other serum enzymes (principal); E87.5 Hyperkalemia; E83.42 Hypomagnesemia

== ENCOUNTER 2018-09-12 13:16 | Emergency (ER) | payer MEDICAID, OTHER ==
[~2018-09-12] VITALS: Ht 157.5 cm; Wt 68.9 kg
[2018-09-12] MEDS ORDERED: PREN29TA4 PO (14:08)
[2018-09-12] MEDS ORDERED: VENL75CA47 PO (14:08)
[2018-09-12] MEDS ORDERED: ONDANSETRON 4 MG ORAL DISINTEGRATING TAB (Q0162 PER 1MG) PO ONE (14:15)
[2018-09-12] MEDS ORDERED: OXAZEPAM 15 MG CAP PO ONE (14:15)
[2018-09-12 16:08] LABS: ACETAMINOPHEN LEVEL < 2.0 UG/ML (10.0-30.0); ALBUMIN 4.4 GM/DL (3.2-5.2); ALT/SGPT 30 U/L (12-78); BILIRUBIN,DIRECT 0.3 MG/DL (0.0-0.2); BILIRUBIN,TOTAL 1.3 MG/DL (0.2-1.0); BLOOD UREA NITROGEN 11 MG/DL (7-18); CALCIUM LEVEL 9.6 MG/DL (8.5-10.1); CARBON DIOXIDE LEVEL 22 MEQ/L (21-32); CHLORIDE LEVEL 100 MEQ/L (98-107); CREATININE FOR GFR 0.44 MG/DL (0.55-1.30); ETHYL ALCOHOL (ETHANOL) < 0.003 % (0.000-0.010); GLOMERULAR FILTRATION RATE > 60.0 (>60); GLUCOSE, FASTING 81 MG/DL (70-100); POTASSIUM SERUM 4.7 MEQ/L (3.5-5.1); SALICYLATE LEVEL < 1.7 MG/DL (5.0-30.0); SODIUM LEVEL 133 MEQ/L (136-145); THYROID STIMULATING HORMONE 0.946 uIU/ML (0.358-3.740); TOTAL PROTEIN 7.8 GM/DL (6.4-8.2)
[2018-09-12 16:13] VITALS: BP 154/93
[2018-09-12 16:15] LABS: HCG, SERUM QUALITATIVE NEGATIVE (NEGATIVE)
[2018-09-12 16:31] LABS: BASO % 0.2 % (0.0-1.0); HEMOGLOBIN 13.3 g/dl (12.0-15.5); LYMPH # 1.2 10^3/uL (1.5-4.5); LYMPH % 10.7 % (24.0-44.0); MEAN CORPUSCULAR HEMOGLOBIN 29.8 pg (27.0-33.0); MEAN CORPUSCULAR HGB CONC 34.1 g/dl (32.0-36.5); MEAN CORPUSCULAR VOLUME 87.4 fl (80.0-96.0); MONO # 0.5 10^3/uL (0.0-0.8); MONO % 4.2 % (0.0-5.0); NEUTROPHILS # 9.5 10^3/uL (1.8-7.7); NEUTROPHILS % 84.6 % (36.0-66.0); PLATELET COUNT, AUTOMATED 265 10^3/uL (150-450); RED BLOOD COUNT 4.46 10^6/uL (4.00-5.40); WHITE BLOOD COUNT 11.2 10^3/uL (4.0-10.0)
[2018-09-12] MEDS ORDERED: OXAZ15CA4 PO ×2 (16:36→18:10)
[2018-09-12] MEDS ORDERED: ZOFR4TAB16 PO (16:37)
[2018-09-12 17:04] LABS: AMPHETAMINES LEVEL URINE NEGATIVE (NEGATIVE); BARBITURATES URINE NEGATIVE (NEGATIVE); BENZODIAZEPINES URINE NEGATIVE (NEGATIVE); CANNABINOIDS URINE NEGATIVE (NEGATIVE); COCAINE METABOLITE URINE NEGATIVE (NEGATIVE); METHADONE URINE NEGATIVE (NEGATIVE); OPIATES URINE NEGATIVE (NEGATIVE); PHENCYCLIDINE URINE NEGATIVE (NEGATIVE)
== END 2018-09-12 17:13 | disposition home or self-care (01) ==
LOC: M ED 13:16
DX: F10.239 Alcohol dependence with withdrawal, unspecified (principal); F33.9 Major depressive disorder, recurrent, unspecified; Z79.899 Other long term (current) drug therapy; Z88.0 Allergy status to penicillin; Z88.1 Allergy status to other antibiotic agents; Z88.2 Allergy status to sulfonamides
CPT/HCPCS: 36415; 80048; 80076; 80307; 84443; 84703; 85025; 99284; G0480; Q0162

== ENCOUNTER → 2018-09-16 | Outpatient (CLI) | payer MEDICAID ==
[~2018-09-16] MED LIST changes: +OXAZ15CA4 PO; +PREN29TA4 PO; +VENL75CA47 PO; +ZOFR4TAB16 PO
== END ==
LOC: M OUTALCOH 12:36
PROVIDERS: ATTEND Psychiatry & Neurology Psychiatry
DX: F10.20 Alcohol dependence, uncomplicated (principal)

== ENCOUNTER → 2018-09-27 | Outpatient (RCR) | payer MEDICAID | LOC: M OUTALCOH 08:42 | PROVIDERS: ATTEND Psychiatry & Neurology Psychiatry | DX: F10.20 Alcohol dependence, uncomplicated (principal) ==

== ENCOUNTER → 2018-10-02 | Outpatient (REF) | payer OTHER ==
[~2018-10-02] MED LIST changes: +TRAZ1TAB10 PO; -TRAZO50TA PO
[2018-10-02 11:56] LABS: ALBUMIN 3.7 GM/DL (3.2-5.2); ALT/SGPT 29 U/L (12-78); BILIRUBIN,TOTAL 0.2 MG/DL (0.2-1.0); BLOOD UREA NITROGEN 7 MG/DL (7-18); CALCIUM LEVEL 9.4 MG/DL (8.5-10.1); CARBON DIOXIDE LEVEL 29 MEQ/L (21-32); CHLORIDE LEVEL 103 MEQ/L (98-107); CHOLESTEROL LEVEL 267 MG/DL (<200); CHOLESTEROL RISK RATIO 3.034 (<5); CREATININE FOR GFR 0.48 MG/DL (0.55-1.30); GLOMERULAR FILTRATION RATE > 60.0 (>60); GLUCOSE, FASTING 93 MG/DL (70-100); HDL CHOLESTEROL 88 MG/DL (>40); LDL CHOLESTEROL 168 MG/DL (<100); MAGNESIUM LEVEL 2.1 MG/DL (1.8-2.4); NON-HDL-C 179 MG/DL; POTASSIUM SERUM 4.1 MEQ/L (3.5-5.1); SODIUM LEVEL 139 MEQ/L (136-145); TOTAL PROTEIN 7.3 GM/DL (6.4-8.2); TRIGLYCERIDES LEVEL 53 MG/DL (<150)
== END ==
LOC: M SFHCCLAY 09:10
PROVIDERS: ATTEND Physician Assistant
DX: R74.8 Abnormal levels of other serum enzymes (principal); E78.00 Pure hypercholesterolemia, unspecified; E83.42 Hypomagnesemia

== ENCOUNTER 2018-10-24 11:00 | Outpatient (RCR) | payer MEDICAID | END 2018-10-27 | LOC: M OUTALCOH 11:00 | PROVIDERS: ATTEND Psychiatry & Neurology Psychiatry | DX: F10.20 Alcohol dependence, uncomplicated (principal) ==

== ENCOUNTER 2018-11-06 23:14 | Observation (INO) | payer MEDICAID, OTHER ==
[~2018-11-06] VITALS: Ht 157.5 cm; Wt 72.0 kg
[2018-11-06] MEDS ORDERED: CVS1CAP2 PO (23:58)
[2018-11-06] MEDS ORDERED: PROBCAP14 PO (23:58)
[2018-11-07 00:38] LABS: HEMATOCRIT 39.1 % (36.0-47.0); HEMOGLOBIN 13.4 g/dl (12.0-15.5); MEAN CORPUSCULAR HEMOGLOBIN 30.7 pg (27.0-33.0); MEAN CORPUSCULAR HGB CONC 34.3 g/dl (32.0-36.5); MEAN CORPUSCULAR VOLUME 89.7 fl (80.0-96.0); PLATELET COUNT, AUTOMATED 354 10^3/uL (150-450); RED BLOOD COUNT 4.36 10^6/uL (4.00-5.40)
[2018-11-07 01:03] LABS: AMPHETAMINES LEVEL URINE NEGATIVE (NEGATIVE); BARBITURATES URINE NEGATIVE (NEGATIVE); BENZODIAZEPINES URINE NEGATIVE (NEGATIVE); CANNABINOIDS URINE NEGATIVE (NEGATIVE); COCAINE METABOLITE URINE NEGATIVE (NEGATIVE); METHADONE URINE NEGATIVE (NEGATIVE); OPIATES URINE NEGATIVE (NEGATIVE); PHENCYCLIDINE URINE NEGATIVE (NEGATIVE)
[2018-11-07 01:14] LABS: HCG, SERUM QUALITATIVE NEGATIVE (NEGATIVE)
[2018-11-07 01:28] LABS: ACETAMINOPHEN LEVEL < 2.0 UG/ML (10.0-30.0); ALBUMIN 3.8 GM/DL (3.2-5.2); ALT/SGPT 26 U/L (12-78); BILIRUBIN,DIRECT 0.2 MG/DL (0.0-0.2); BILIRUBIN,TOTAL 0.4 MG/DL (0.2-1.0); BLOOD UREA NITROGEN 10 MG/DL (7-18); CALCIUM LEVEL 8.3 MG/DL (8.5-10.1); CARBON DIOXIDE LEVEL 26 MEQ/L (21-32); CHLORIDE LEVEL 102 MEQ/L (98-107); CREATININE FOR GFR 0.79 MG/DL (0.55-1.30); ETHYL ALCOHOL (ETHANOL) 0.293 % (0.000-0.010); GLOMERULAR FILTRATION RATE > 60.0 (>60); GLUCOSE, FASTING 86 MG/DL (70-100); POTASSIUM SERUM 3.8 MEQ/L (3.5-5.1); SALICYLATE LEVEL < 1.7 MG/DL (5.0-30.0); SODIUM LEVEL 139 MEQ/L (136-145); TOTAL PROTEIN 7.5 GM/DL (6.4-8.2)
[2018-11-07] MEDS ORDERED: VENL37.598 PO (02:29)
[2018-11-07] MEDS ORDERED: VENL75CA2 PO (02:29)
[2018-11-07] MEDS ORDERED: MAGN500T2 PO (02:29)
[2018-11-07] MEDS ORDERED: CVS1CHW58 PO (02:29)
[2018-11-07] MEDS ORDERED: [UNRECOGNIZED DRUG - OTHER] PO (02:29)
[2018-11-07] MEDS ORDERED: PRENCHW PO (02:29)
[2018-11-07] MEDS ORDERED: LORazepam 1 MG TAB PO STA (09:28)
[2018-11-07] MEDS ORDERED: VENLAFAXINE 37.5 MG TAB PO ONE (10:00)
[2018-11-07] MEDS ORDERED: ONDANSETRON 4 MG ORAL DISINTEGRATING TAB (Q0162 PER 1MG) As Ordered ONE (10:39)
[2018-11-07] MEDS ORDERED: ONDANSETRON 4 MG ORAL DISINTEGRATING TAB (Q0162 PER 1MG) PO ONE (10:45)
[2018-11-07] MEDS ORDERED: VENLAFAXINE **XR** 37.5 MG CAPSULE PO ONE (11:00)
[2018-11-07] MEDS ORDERED: VENLAFAXINE **XR** 75MG CAPSULE PO ONE (11:00)
[2018-11-07] MEDS ORDERED: LORazepam 2 MG/ML VIAL (J2060) IV STA (11:34)
[2018-11-07] MEDS ORDERED: NS 1,000 ML IV SCH (11:45)
[2018-11-07] MEDS ORDERED: THIAMINE HCL 200 MG/2 ML VIAL (J3411) IM ONE (11:45)
[2018-11-07] MEDS ORDERED: PROMETHAZINE INJ 25 MG/ML VIAL (J2550) IV ONE (12:15)
[2018-11-07] MEDS ORDERED: LORazepam 1 MG TAB PO PRN (13:15)
[2018-11-07] MEDS: NS 1,000 ML IV SCH ×2 (14:35→19:57)
[2018-11-07 16:05] VITALS: BP 141/94
--- NOTE | 2018-11-07 16:25 | HPE ---
DATE OF ADMISSION: 11/07/2018 ATTENDING PHYSICIAN: Dr. Khanna CHIEF COMPLAINT: Alcohol abuse and suicidal attempt. HISTORY OF THE PRESENT ILLNESS: The patient is a 28-year-old white female with a history of depression and suicidal attempt in the past, presented to the emergency room (ER) for evaluation of alcohol abuse as well as suicide attempt. The history is provided by herself. She states she has a history of suicidal attempt last year. For that, she was in the mental health unit for a couple of days back to March of last year. She also stated she is a heavy drinker. She quit and restarted recently, and recently she did not get along with her boyfriend as well as her sister, so she was very angry and upset. She drank a lot of vodka. Today she was trying to take some pills to kill herself, but her boyfriend stopped her and sent her over here for further evaluation. In the ER, she was found to have alcohol intoxication and otherwise no significant findings. She was treated supportively in the ER including intravenous (IV) fluids and Ativan. Meanwhile, medicine service was called for admission. PAST MEDICAL HISTORY: Depression and suicide attempt. PAST SURGICAL HISTORY: Tonsillectomy. ALLERGIES: Allergic to PENICILLIN and SULFA. MEDICATIONS: No routine medications. SOCIAL HISTORY: She denies smoking cigarettes but drinks vodka heavily. Does not use any illicit drugs. FAMILY HISTORY: No family history of depression, or suicidal PHYSICAL EXAMINATION: VITAL SIGNS: Temperature 98.3, heart rate is 124, respiratory rate 18, blood pressure 130/84, oxygen saturation 98% on room air. GENERAL: She is awake, alert, oriented times three. She is not in acute distress. HEENT: Atraumatic. Pupils are equal, round, reactive to light. No jaundice. Extraocular muscles intact. Ears, nose and throat: Normal. Mouth: Mucosa dry. NECK: No jugular venous distention (JVD), no bruits. LUNGS: Clear. No wheezing, no crackles. HEART: S1, S2 regular but tachycardic. No murmur. ABDOMEN: Soft. Bowel sounds positive. Nontender. LOWER EXTREMITIES: No edema in bilateral lower extremities. NEUROLOGIC: Nonfocal. SKIN: No rash. PSYCHOLOGIC: No acute psychosis. DIAGNOSTIC AND LAB STUDIES: CBC and differential showed WBC 8.0, hemoglobin and hematocrit 13.4 over 39, platelets 354. Sodium 139, potassium 3.8, chloride 102, bicarbonate 26, BUN 10, creatinine 0.79, glucose 86. Alcohol level is 0.293. IMPRESSION: 1. Alcohol abuse and intoxication. 2. Suicidal attempt. 3. History of depression. PLAN: The patient will be admitted to medical-surgical floor. I will treat her with intravenous (IV) fluid as well as benzodiazepine (benzo) as needed, and she will be put on one-to-one sitter for safety watch and psychiatry will be consulted tomorrow. She will be admitted for observation. SLADE
[2018-11-07 18:00] VITALS: BP 141/94
[2018-11-07] MEDS: VENLAFAXINE **XR** 75MG CAPSULE PO SCH (18:28)
[2018-11-07] MEDS: VENLAFAXINE **XR** 37.5 MG CAPSULE PO SCH (18:29)
[2018-11-07 22:00] VITALS: BP 128/82
[2018-11-08] VITALS: BP 121/82
[2018-11-08 05:46] LABS: HEMATOCRIT 34.9 % (36.0-47.0); HEMOGLOBIN 11.5 g/dl (12.0-15.5); MEAN CORPUSCULAR HEMOGLOBIN 30.7 pg (27.0-33.0); MEAN CORPUSCULAR VOLUME 93.1 fl (80.0-96.0); PLATELET COUNT, AUTOMATED 224 10^3/uL (150-450); RED BLOOD COUNT 3.75 10^6/uL (4.00-5.40); WHITE BLOOD COUNT 6.8 10^3/uL (4.0-10.0)
[2018-11-08] MEDS: NS 1,000 ML IV SCH (05:50)
[2018-11-08 06:00] VITALS: BP 148/92
[2018-11-08 06:04] LABS: BLOOD UREA NITROGEN 4 MG/DL (7-18); CARBON DIOXIDE LEVEL 29 MEQ/L (21-32); CHLORIDE LEVEL 106 MEQ/L (98-107); CREATININE FOR GFR 0.61 MG/DL (0.55-1.30); GLOMERULAR FILTRATION RATE > 60.0 (>60); GLUCOSE, FASTING 125 MG/DL (70-100); POTASSIUM SERUM 3.4 MEQ/L (3.5-5.1); SODIUM LEVEL 138 MEQ/L (136-145)
[2018-11-08] MEDS: VENLAFAXINE **XR** 37.5 MG CAPSULE PO SCH (08:28)
[2018-11-08] MEDS: VENLAFAXINE **XR** 75MG CAPSULE PO SCH (08:28)
[2018-11-08] MEDS ORDERED: PRENATAL VITAMINS CHEWABLE TABLET PO SCH (09:00)
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
[2018-11-08 14:00] VITALS: BP 139/90
--- NOTE | 2018-11-08 16:09 | IPNPDOC ---
Date Seen The patient was seen on 11/08/18. Progress Note SUBJECTIVE: 28 Y female with history of ETOH, depression presents with etoh abuse and suicidal attempts doing well no events overnight Review of Systems no fever no chills no chest pain no abdominal pain no diarrhea OBJECTIVE PHYSICAL EXAMINATION: VITAL SIGNS: Please see below. GENERAL: AA ox3, not in distress HEENT: atraumatic CARDIOVASCULAR: S1 S2 regular RESPIRATORY: clear ABDOMINAL: soft BS + non tender EXTREMITIES: no edema NEUROLOGICAL: non focal PSYCHOLOGICAL: no acute psychosis LABORATORY DATA, IMAGING STUDIES, MICROBIOLOGY: Please see below. DVT prophylaxis ordered?: yes ASSESSMENT AND PLAN: 1. ETOH abuse advised to quit drinking no evidence of withdrawal 2. suicidal attempt 1 to 1 sitter psych consult pending VS, I&O, 24H, Fishbone Vital Signs/I&O Vital Signs Date Time Temp Pulse Resp B/P (MAP) Pulse Ox O2 Delivery O2 Flow Rate FiO2 11/08/18 14:00 97.9 74 20 139/90 (106) 100 11/07/18 15:41 Room Air I&O- Last 24 Hours up to 6 AM 11/08/18 06:00 Intake Total 3140 ml Output Total 2300 ml Balance 840 ml Laboratory Data 24H LABS Laboratory Tests 2 11/08/18 05:23: Nucleated Red Blood Cells % (auto) 0.0, Anion Gap 3L, Glomerular Filtration Rate > 60.0, Blood Urea Nitrogen 4#L, Creatinine 0.61, Sodium Level 138, Potassium Level 3.4L, Chloride Level 106, Carbon Dioxide Level 29, Calcium Level 8.0L CBC/BMP Laboratory Tests 11/08/18 05:23 Red Blood Count 3.75 L, Mean Corpuscular Volume 93.1, Mean Corpuscular Hemoglobin 30.7, Mean Corpuscular Hemoglobin Concent 33.0, Red Cell Distribution Width 15.3 H, Calcium Level 8.0 L TALAT VARGAS MD Nov 08, 2018 16:09
--- NOTE | 2018-11-08 16:29 | DS.PDOC ---
Discharge Summary General Date of Admission Nov 07, 2018 at 13:09 Date of Discharge 11/08/18 Attending Physician: TALAT VARGAS MD Specialist/Consultants Involve: DAMARIS STAFFORD DO Discharge Summary PROCEDURES PERFORMED DURING STAY: [None]. ADMITTING DIAGNOSES: 1.ETOH abuse 2. suicidal attempt DISCHARGE DIAGNOSES: 1.ETOH abuse 2. suicidal attempt COMPLICATIONS/CHIEF COMPLAINT: Etoh Abuse. HISTORY OF PRESENT ILLNESS: The patient is a 28-year-old white female with a history of depression and suicidal attempt in the past, presented to the emergency room (ER) for evaluation of alcohol abuse as well as suicide attempt. The history is provided by herself. She states she has a history of suicidal attempt last year. For that, she was in the mental health unit for a couple of days back to March of last year. She also stated she is a heavy drinker. She quit and restarted recently, and recently she did not get along with her boyfriend as well as her sister, so she was very angry and upset. She drank a lot of vodka. Today she was trying to take some pills to kill herself, but her boyfriend stopped her and sent her over here for further evaluation. In the ER, she was found to have alcohol intoxication and otherwise no significant findings. She was treated supportively in the ER including intravenous (IV) fluids and Ativan. Meanwhile, medicine service was called for admission. HOSPITAL COURSE: after admission, she was treated supportively including IVF and ativan and she did well. she was consulted with psychiatrist who cleared her; she is go home and will follow her psych therapist next week. DISCHARGE MEDICATIONS: Please see below. ALLERGIES: Please see below. PHYSICAL EXAMINATION ON DISCHARGE: VITAL SIGNS: Please see below. GENERAL: AA Ox3, no stress HEENT: atraumatic NECK: no JVD CARDIOVASCULAR EXAMINATION: S1S2 regular RESPIRATORY EXAMINATION: clear ABDOMINAL EXAMINATION: no tenderness EXTREMITIES: on edema SKIN: no rash NEUROLOGICAL EXAMINATION: non focal PSYCHIATRIC EXAMINATION: no acute psychosis no suicidal LABORATORY DATA: Please see below. ACTIVITY: [As tolerated]. DIET: regular DISPOSITION: home ITEMS TO FOLLOWUP ON ON OUTPATIENT: with psych therapist DISCHARGE CONDITION: [Stable]. TIME SPENT ON DISCHARGE: Greater than 25 minutes. Vital Signs/I&Os Vital Signs Date Time Temp Pulse Resp B/P (MAP) Pulse Ox O2 Delivery O2 Flow Rate FiO2 11/08/18 14:00 97.9 74 20 139/90 (106) 100 11/07/18 15:41 Room Air I&O- Last 24 Hours up to 6 AM 11/08/18 06:00 Intake Total 3140 ml Output Total 2300 ml Balance 840 ml Laboratory Data Labs 24H Laboratory Tests 2 11/08/18 05:23: Nucleated Red Blood Cells % (auto) 0.0, Anion Gap 3L, Glomerular Filtration Rate > 60.0, Blood Urea Nitrogen 4#L, Creatinine 0.61, Sodium Level 138, Potassium Level 3.4L, Chloride Level 106, Carbon Dioxide Level 29, Calcium Level 8.0L CBC/BMP Laboratory Tests 11/08/18 05:23 Red Blood Count 3.75 L, Mean Corpuscular Volume 93.1, Mean Corpuscular Hemoglobin 30.7, Mean Corpuscular Hemoglobin Concent 33.0, Red Cell Distribution Width 15.3 H, Calcium Level 8.0 L Discharge Medications Scheduled Ascorbic Acid (C-500) 500 Mg Tab.chew, 500 MG PO DAILY, (Reported) Bacillus Coagulans (Probiotic) 1 Each Tab.chew, 1 CHW PO DAILY, (Reported) Magnesium Oxide (Magnesium Oxide) 500 Mg Tablet, 500 MG PO DAILY, (Reported) Pnv No.118/Iron Fumarate/FA ( 19 Chewable Tablet) 1 Each Tab.chew, 1 CHW PO DAILY, (Reported) Venlafaxine HCl (Venlafaxine HCl ER) 37.5 Mg Cap.er.24h, 37.5 MG PO DAILY, (Reported) Venlafaxine HCl (Venlafaxine HCl ER) 75 Mg Cap.er.24h, 75 MG PO DAILY, (Reported) Allergies Coded Allergies: Penicillins (Verified Allergy, Mild, rash, 11/06/18) Sulfa (Sulfonamide Antibiotics) (Verified Allergy, Mild, RASH, 11/06/18) minocycline (Verified Allergy, Mild, rash, 11/06/18) TALAT VARGAS MD Nov 08, 2018 16:29
== END 2018-11-08 17:45 | disposition home or self-care (01) ==
LOC: M ED 23:14 → M ED INP 11-07 13:09 → M MSPAV 11-07 15:57
PROVIDERS: ADMIT Hospitalist; ATTEND Hospitalist
DX: F10.220 Alcohol dependence with intoxication, uncomplicated (principal); T14.91XA Suicide attempt, initial encounter; Y92.89 Other specified places as the place of occurrence of the external cause; F32.9 Major depressive disorder, single episode, unspecified; Z91.5 Personal history of self-harm; Z81.8 Family history of other mental and behavioral disorders; Z79.899 Other long term (current) drug therapy; Z88.0 Allergy status to penicillin; Z88.2 Allergy status to sulfonamides; Z88.8 Allergy status to other drugs, medicaments and biological substances
CPT/HCPCS: 36415; 80048; 80076; 80307; 84443; 84703; 85027; 93041; 96372; 96374; 96375; 99285; G0480; J2060; J3411; Q0162

== ENCOUNTER → 2018-11-27 | Outpatient (RCR) | payer MEDICAID ==
[~2018-11-27] MED LIST changes: +CVS1CAP2 PO; +CVS1CHW58 PO; +MAGN500T2 PO; +PRENCHW PO; +PROBCAP14 PO; +VENL37.598 PO; +VENL75CA2 PO; +[UNRECOGNIZED DRUG - OTHER] PO
== END ==
LOC: M OUTALCOH 10-29 14:28
PROVIDERS: ATTEND Psychiatry & Neurology Psychiatry
DX: F10.20 Alcohol dependence, uncomplicated (principal)

== ENCOUNTER 2018-12-23 14:00 | Outpatient (RCR) | payer MEDICAID | END 2018-12-28 | LOC: M OUTALCOH 14:00 | PROVIDERS: ATTEND Psychiatry & Neurology Psychiatry | DX: F10.20 Alcohol dependence, uncomplicated (principal) ==

== ENCOUNTER → 2019-01-07 | Outpatient (REF) | payer MEDICAID ==
[2019-01-10 14:42] LABS: HPV HYBRID CAPTURE II Negative (Negative)
== END ==
LOC: M LAB REF 17:15
PROVIDERS: ATTEND Advanced Practice Midwife
DX: Z12.4 Encounter for screening for malignant neoplasm of cervix (principal)

== ENCOUNTER → 2019-01-16 | Outpatient (CLI) | payer MEDICAID ==
[2019-01-16 16:18] LABS: ESTRADIOL 27.4 PG/ML; FOLLICLE STIMULATING HORMONE 2.8 mIU/mL; LUTEINIZING HORMONE 6.4 mIU/mL; PROLACTIN 19.2 NG/ML
[2019-01-16 16:21] LABS: HEMATOCRIT 37.8 % (36.0-47.0); HEMOGLOBIN 12.9 g/dl (12.0-15.5); MEAN CORPUSCULAR HEMOGLOBIN 30.4 pg (27.0-33.0); MEAN CORPUSCULAR HGB CONC 34.1 g/dl (32.0-36.5); MEAN CORPUSCULAR VOLUME 88.9 fl (80.0-96.0); PLATELET COUNT, AUTOMATED 327 10^3/uL (150-450); RED BLOOD COUNT 4.25 10^6/uL (4.00-5.40)
[2019-01-21 14:27] LABS: 17 HYDROXY PROGESTERONE 28 ng/dL (.); DEHYDROEPIANDROSTERONE SULFATE 91.4 ug/dL (84.8-378.0); INSULIN LEVEL 7.4 uIU/mL (2.6-24.9); TESTOSTERONE FREE (DIRECT) 0.9 pg/mL (0.0-4.2)
== END ==
LOC: M WUC 11:26
PROVIDERS: ATTEND Advanced Practice Midwife
DX: N91.4 Secondary oligomenorrhea (principal)

== ENCOUNTER → 2019-01-27 | Outpatient (RCR) | payer MEDICAID | LOC: M OUTALCOH 01-02 15:39 | PROVIDERS: ATTEND Psychiatry & Neurology Psychiatry | DX: F10.20 Alcohol dependence, uncomplicated (principal) ==

== ENCOUNTER → 2019-02-03 | Outpatient (CLI) | payer MEDICAID | LOC: M WUC 09:58 | PROVIDERS: ATTEND Advanced Practice Midwife | DX: N91.4 Secondary oligomenorrhea (principal) ==

== ENCOUNTER → 2019-02-27 | Outpatient (RCR) | payer MEDICAID | LOC: M OUTALCOH 01-30 15:51 | PROVIDERS: ATTEND Psychiatry & Neurology Psychiatry | DX: F10.20 Alcohol dependence, uncomplicated (principal) ==

== ENCOUNTER → 2019-11-03 | Outpatient (CLI) | payer MEDICAID, OTHER ==
[~2019-11-03] MED LIST changes: +IBUP200C33 PO
== END ==
LOC: M LABSMTC 11:48
PROVIDERS: ATTEND Anesthesiology
DX: Z01.818 Encounter for other preprocedural examination (principal); Z11.59 Encounter for screening for other viral diseases
CPT/HCPCS: C9803; U0002

== ENCOUNTER 2019-11-04 14:34 | Day surgery (SDC) | payer OTHER ==
[~2019-11-04] VITALS: Ht 157.5 cm; Wt 69.8 kg
[~2019-11-04 14:34] MED LIST changes: +CLINDAMYCIN 900 MG in IV 1 EA IV ONE; -IBUP200C33 PO
[2019-11-04] MEDS ORDERED: IBUP200C33 PO (15:45)
[2019-11-04] MEDS ORDERED: fentaNYL 100 MCG/2 ML INJECTION (J3010) As Ordered ONE ×3 (16:19→19:01)
[2019-11-04] MEDS ORDERED: MIDAZOLAM INJ 2MG/2ML VIAL (J2250 PER 1MG) As Ordered ONE ×2 (16:19→17:52)
[2019-11-04] MEDS ORDERED: MIDAZOLAM INJ 2MG/2ML VIAL (J2250 PER 1MG) IV SCH (17:00)
[2019-11-04] MEDS ORDERED: fentaNYL 100 MCG/2 ML INJECTION (J3010) IV SCH (17:15)
[2019-11-04] MEDS ORDERED: dexameTHASONE 4 MG/ML 1ML VIAL (J1100 PER 1MG) As Ordered ONE (17:52)
[2019-11-04] MEDS ORDERED: LIDOCAINE 2% 100MG/5ML SDV (FOR ANES.) As Ordered ONE (17:52)
[2019-11-04] MEDS ORDERED: SUGAMMADEX SODIUM 500 MG/5 ML VIAL (BRIDION) As Ordered ONE (17:52)
[2019-11-04] MEDS ORDERED: ROCURONIUM BROMIDE 50 MG/5 ML VIAL As Ordered ONE (17:52)
[2019-11-04] MEDS ORDERED: propofoL 200 MG/20 ML VIAL As Ordered ONE (17:52)
[2019-11-04] MEDS ORDERED: ONDANSETRON 4MG/2ML VIAL As Ordered ONE (17:52)
[2019-11-04] MEDS ORDERED: ACETAMINOPHEN 1000MG 100ML IV BTL (OFIRMEV) (J0131 PER 10MG) As Ordered ONE (18:00)
[2019-11-04] MEDS ORDERED: PHENYLephrine HCL 500 MCG/5 ML (100MCG/ML) SYRINGE (J2370) As Ordered ONE (18:20)
[2019-11-04] MEDS ORDERED: ONDANSETRON 4MG/2ML VIAL IV PRN (19:30)
[2019-11-04] MEDS ORDERED: METOCLOPRAMIDE INJ 10MG/2ML VIAL (J2765 PER 1) IV PRN (19:30)
[2019-11-04] MEDS ORDERED: LR 1,000 ML IV SCH ×2 (19:30)
[2019-11-04] MEDS ORDERED: fentaNYL 100 MCG/2 ML INJECTION (J3010) IV PRN (19:30)
[2019-11-04 20:51] VITALS: BP 120/70
[2019-11-05] MEDS ORDERED: LR 1,000 ML IV SCH (06:00)
--- NOTE | 2019-11-05 07:28 | REP ---
C-ARM VIEWS RIGHT ANKLE: Multiple C-arm views right ankle performed. There is placement of metallic sideplate and multiple screws in the distal fibula. The osseous structures are well aligned. 51 seconds fluoroscopy time utilized. Electronically Signed by Benitez Pickard MD 11/06/2019 09:18 A
--- NOTE | 2019-11-10 22:41 | RO ---
DATE OF PROCEDURE: 11/04/2019 PREPROCEDURE DIAGNOSIS: Right bimalleolar ankle fracture. POSTPROCEDURE DIAGNOSIS: Right bimalleolar ankle fracture. PROCEDURE: Open reduction internal fixation right ankle. SURGEON: Alisa Guevara MD FLIGHT RADIO OPERATOR: None. ANESTHESIA: General endotracheal with popliteal nerve block. ESTIMATED BLOOD LOSS: 10 mL. COMPLICATIONS: None. CONDITION: Stable to recovery. INDICATIONS: Ashli Finney is a 29-year-old female who sustained a right ankle fracture while on a slip and slide.. She was offered both operative and non-operative management. She has elected for surgery. Risks and benefits of surgery were discussed with the patient in detail and include, but are not limited to, infection, damage to nerves and blood vessels, continued pain and stiffness, need for additional procedures. Informed consent was obtained in the office. DESCRIPTION OF PROCEDURE: The patient was met in the preoperative holding area where the right lower extremity was marked as the correct operative side. She was taken to the post-anesthesia care unit (PACU) where she underwent a popliteal nerve block by the anesthesia team. She was then taken to the operating room where she was placed in the supine position on the operating room table. Bony prominences were well padded. A well-padded tourniquet was placed on the right upper thigh. The patient was prepped and draped in the normal sterile fashion. She was given antibiotics within 60 minutes prior to incision. The right lower extremity was prepped and draped in the normal sterile fashion. An official time-out was held where the correct patient, operative side and operative procedure were verified. The leg was exsanguinated and the tourniquet was inflated to 250 mmHg. It was up for 44 minutes. An incision was made over the posterolateral aspect of the fibula. Careful dissection to the level of the fibula in the fracture site was performed. Care was taken to avoid the superficial peroneal nerve. Fracture was identified and cleaned of hematoma and debris. There was a small amount of comminution laterally. The fracture was then irrigated and reduced using a point of reduction forceps. It was held in place with a 1.25 K-wire. A 3.5 mm lag screw was placed across the fracture site with good compression. X-rays were performed in the AP, mortise and lateral views and were found to show satisfactory reduction and lag screw placement. Following this, a 7-hole plate was selected. It was secured proximally with 3.5 mm cortical screws and distally with 4.0 mm cortical screws. The bone distally was somewhat soft. Next, x-rays were performed in AP, lateral and mortise views and an external rotation stress view was also performed. It was found to be stable. Copious irrigation was performed. Periosteum was closed over the plate distally. Soft tissues were closed with #3-0 Vicryl, and the skin was closed with a running #3-0 nylon. A sterile dressing was applied followed by a well-padded splint. The patient was extubated and transferred to the recovery room in stable condition. PLAN: The patient will be non-weightbearing on the right lower extremity for 6 weeks. I will see her in 2 weeks for suture removal and likely cast placement. She will be on aspirin 81 mg by mouth twice a day for deep vein thrombosis (DVT) prophylaxis.
== END 2019-11-04 21:00 | disposition home or self-care (01) ==
LOC: M SDC 14:34
PROVIDERS: ATTEND Orthopaedic Surgery
DX: S82.841A Displaced bimalleolar fracture of right lower leg, initial encounter for closed fracture (principal); W01.0XXA Fall on same level from slipping, tripping and stumbling without subsequent striking against object, initial encounter; Y92.89 Other specified places as the place of occurrence of the external cause; Y93.9 Activity, unspecified; Y99.9 Unspecified external cause status; F41.9 Anxiety disorder, unspecified; Z88.0 Allergy status to penicillin; Z88.2 Allergy status to sulfonamides; Z88.8 Allergy status to other drugs, medicaments and biological substances; Z91.81 History of falling
CPT/HCPCS: 27814; 64445; 76000; 81025; C1713; J0131; J1100; J2250; J2370; J2405; J3010

== ENCOUNTER → 2020-07-06 | Outpatient (CLI) | payer OTHER ==
[~2020-07-06] MED LIST changes: -CLINDAMYCIN 900 MG in IV 1 EA IV ONE; +IBUP200C33 PO
== END ==
LOC: M WHC 09:45
PROVIDERS: ATTEND Advanced Practice Midwife
DX: Z53.9 Procedure and treatment not carried out, unspecified reason (principal)

== ENCOUNTER → 2020-07-23 | Outpatient (CLI) | payer OTHER ==
--- NOTE | 2020-07-23 11:11 | REPMRS ---
Patient History The patient states she had a clinical breast exam in 06/2020. Patient is nulliparous. Family history of colorectal cancer at age 50 or over in paternal grandmother, breast cancer at age 60 in paternal aunt, ovarian cancer at age 38 in paternal cousin, breast cancer at age 38 in paternal cousin. No Hormone Replacement Therapy Indicated problem(s): right breast nipple abnormality for 6 months. Patient states right nipple itching x6 months, used a steriod creme for 2 weeks itching went away while on it, but once no longer using it the itching came back. Diagnostic Bilateral Mammo: July 23, 2020 - Exam #: [id number] Bilateral CC and MLO view(s) were taken. Technologist: Ani Silverman, Technologist No prior studies available for comparison. FINDINGS: There are scattered fibroglandular densities. The Volpara volumetric breast density category is: B. There is no evidence of dominant mass, architectural distortion, or grouped microcalcification typical of malignancy. 3-D tomosynthesis shows no additional findings. Assessment: BI-RADS/ACR category 1 mammogram. Negative Mammogram. Recommendation Routine screening mammogram of both breasts in 1 year (for women over age 40). This patient's [facility] Lifetime Breast Cancer Risk is estimated at 24.3 %. Annual screening Breast MRI scanniing is recommended for patient's whose lifetime risk assessment is over 20%. This mammogram was interpreted with the aid of an FDA-approved computer-aided dectection system. Electronically Signed By: Woody San MD 07/23/20 [id number]
== END ==
LOC: M WHC 08:53
PROVIDERS: ATTEND Advanced Practice Midwife
DX: N64.59 Other signs and symptoms in breast (principal)
CPT/HCPCS: 77066; G0279

== ENCOUNTER → 2020-08-02 | Outpatient (REF) | payer OTHER, MEDICAID | LOC: M WUC 19:56 | PROVIDERS: ATTEND Physician Assistant | DX: N39.0 Urinary tract infection, site not specified (principal) ==

== ENCOUNTER 2020-09-28 12:25 | Emergency (ER) | payer MEDICAID, OTHER ==
[~2020-09-28] VITALS: Ht 157.5 cm; Wt 73.4 kg
[2020-09-28] MEDS ORDERED: LORazepam 2 MG TAB PO PRN (13:05)
[2020-09-28 13:42] LABS: HEMATOCRIT 40.5 % (36.0-47.0); HEMOGLOBIN 14.3 g/dl (12.0-15.5); MEAN CORPUSCULAR HEMOGLOBIN 31.9 pg (27.0-33.0); MEAN CORPUSCULAR HGB CONC 35.3 g/dl (32.0-36.5); MEAN CORPUSCULAR VOLUME 90.4 fl (80.0-96.0); PLATELET COUNT, AUTOMATED 313 10^3/uL (150-450); RED BLOOD COUNT 4.48 10^6/uL (4.00-5.40); WHITE BLOOD COUNT 11.1 10^3/uL (4.0-10.0)
[2020-09-28] MEDS ORDERED: MULTIVITAMIN -ADULT INJECTION 10 ML, THIAMINE INJection 100 MG, FOLIC ACID 1 MG in NS 1... IV ONE (14:25)
[2020-09-28 14:30] LABS: HCG, SERUM QUALITATIVE NEGATIVE (NEGATIVE)
[2020-09-28 14:36] LABS: ALBUMIN 4.4 GM/DL (3.2-5.2); ALT/SGPT 30 U/L (12-78); BILIRUBIN,DIRECT 0.3 MG/DL (0.0-0.2); BLOOD UREA NITROGEN 11 MG/DL (7-18); CALCIUM LEVEL 9.3 MG/DL (8.5-10.1); CARBON DIOXIDE LEVEL 21 MEQ/L (21-32); CHLORIDE LEVEL 102 MEQ/L (98-107); CREATININE FOR GFR 0.57 MG/DL (0.55-1.30); ETHYL ALCOHOL (ETHANOL) < 0.003 % (0.000-0.010); GLOMERULAR FILTRATION RATE > 60.0 (>60); GLUCOSE, FASTING 67 MG/DL (70-100); SALICYLATE LEVEL < 1.7 MG/DL (5.0-30.0); SODIUM LEVEL 137 MEQ/L (136-145); TOTAL PROTEIN 8.1 GM/DL (6.4-8.2)
[2020-09-28 14:37] LABS: ACETAMINOPHEN LEVEL < 2.0 UG/ML (10.0-30.0)
[2020-09-28 17:03] LABS: AMPHETAMINES LEVEL URINE NEGATIVE (NEGATIVE); BARBITURATES URINE NEGATIVE (NEGATIVE); BENZODIAZEPINES URINE NEGATIVE (NEGATIVE); CANNABINOIDS URINE NEGATIVE (NEGATIVE); COCAINE METABOLITE URINE NEGATIVE (NEGATIVE); METHADONE URINE NEGATIVE (NEGATIVE); OPIATES URINE NEGATIVE (NEGATIVE); PHENCYCLIDINE URINE NEGATIVE (NEGATIVE)
[2020-09-28] MEDS ORDERED: OXAZEPAM 15 MG CAP PO ONE (17:50)
[2020-09-28] MEDS ORDERED: OXAZ30CA2 PO (18:31)
[2020-09-28 18:45] VITALS: BP 152/90
--- NOTE | 2020-09-29 20:37 | ECGEPIP ---
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
== END 2020-09-28 19:12 | disposition home or self-care (01) ==
LOC: M ED 12:25
DX: F10.230 Alcohol dependence with withdrawal, uncomplicated (principal); K21.9 Gastro-esophageal reflux disease without esophagitis; K58.9 Irritable bowel syndrome, unspecified; Z88.0 Allergy status to penicillin; Z88.1 Allergy status to other antibiotic agents; Z88.2 Allergy status to sulfonamides
CPT/HCPCS: 80048; 80076; 80143; 80307; 82077; 84443; 84703; 85027; 93005; 96365; 99285; J3411

== ENCOUNTER 2020-11-15 12:30 | Emergency (ER) | payer MEDICAID, OTHER ==
[~2020-11-15] VITALS: Ht 160 cm; Wt 70.5 kg
[~2020-11-15 12:30] MED LIST changes: +OXAZ30CA2 PO
[2020-11-15] MEDS ORDERED: ONDANSETRON 4MG/2ML VIAL IV ONE (13:50)
[2020-11-15] MEDS ORDERED: NS 1,000 ML IV SCH (13:50)
[2020-11-15] MEDS ORDERED: MORPHINE 4 MG/ML 1ML VIAL/SYRINGE (J2270) IV ONE (13:50)
--- NOTE | 2020-11-15 14:04 | REP ---
INDICATION: Abdominal Pain COMPARISON: None. TECHNIQUE: PA/Lateral FINDINGS: Lungs: Clear, no infiltrate. Heart: Normal in size. Mediastinum: Mediastinal silhouette unremarkable. Pleural angles: Unremarkable.. Bones and soft tissues: Unremarkable. IMPRESSION: No acute pulmonary disease. <Electronically signed by Benitez Pickard > 11/15/20 1736
--- NOTE | 2020-11-15 14:27 | REP ---
INDICATION: RUQ PAIN. COMPARISON: 08/19/2017. TECHNIQUE: Real-time sonographic evaluation of right upper quadrant performed. FINDINGS: The gallbladder demonstrates no evidence of intraluminal sludge or calculi, wall thickening or pericholecystic fluid. There is no intrahepatic or extrahepatic biliary dilatation, common bile duct measures 4 mm in maximum diameter. The liver demonstrates homogeneous echotexture with no gross mass. Visualized pancreas is grossly unremarkable, not optimally seen due to overlying bowel gas. The right kidney demonstrates no hydronephrosis, with a normal size of 10.5 cm in length. No free fluid is seen. IMPRESSION: Negative right upper quadrant ultrasound. <Electronically signed by Benitez Pickard > 11/15/20 1108
[2020-11-15 14:28] LABS: BASO % 0.5 % (0.0-1.0); EOS % 0.3 % (0.0-3.0); HEMATOCRIT 44.8 % (36.0-47.0); HEMOGLOBIN 15.4 g/dl (12.0-15.5); LYMPH # 1.3 10^3/uL (1.5-5.0); LYMPH % 33.3 % (24.0-44.0); MEAN CORPUSCULAR HEMOGLOBIN 31.8 pg (27.0-33.0); MEAN CORPUSCULAR HGB CONC 34.4 g/dl (32.0-36.5); MEAN CORPUSCULAR VOLUME 92.6 fl (80.0-96.0); MONO # 0.4 10^3/uL (0.0-0.8); MONO % 9.1 % (2.0-8.0); NEUTROPHILS # 2.2 10^3/uL (1.5-8.5); NEUTROPHILS % 56.5 % (36.0-66.0); PLATELET COUNT, AUTOMATED 312 10^3/uL (150-450); RED BLOOD COUNT 4.84 10^6/uL (4.00-5.40)
[2020-11-15 14:50] LABS: ALBUMIN 4.4 GM/DL (3.2-5.2); ALT/SGPT 36 U/L (12-78); BILIRUBIN,DIRECT 0.1 MG/DL (0.0-0.2); BILIRUBIN,TOTAL 0.6 MG/DL (0.2-1.0); BLOOD UREA NITROGEN 9 MG/DL (7-18); CALCIUM LEVEL 9.6 MG/DL (8.5-10.1); CARBON DIOXIDE LEVEL 24 MEQ/L (21-32); CHLORIDE LEVEL 103 MEQ/L (98-107); CREATININE FOR GFR 0.48 MG/DL (0.55-1.30); GLOMERULAR FILTRATION RATE > 60.0 (>60); GLUCOSE, FASTING 67 MG/DL (70-100); LIPASE 58 U/L (73-393); POTASSIUM SERUM 4.9 MEQ/L (3.5-5.1); SODIUM LEVEL 138 MEQ/L (136-145); TOTAL PROTEIN 8.3 GM/DL (6.4-8.2)
--- NOTE | 2020-11-15 15:36 | REP ---
INDICATION: RUQ PAIN R/O UROLITHIASIS. COMPARISON: None. TECHNIQUE: Noncontrast scanning through the abdomen and pelvis with coronal and sagittal reconstructions provided. FINDINGS: CT abdomen: Lung bases are clear. The heart is not enlarged and there is no pericardial thickening or effusion. No hiatal hernia. Subtle fat infiltration in the liver compared to the spleen with borderline hepatomegaly at 18 cm vertical diameter in the midclavicular line. No discrete hepatic mass biliary dilatation or adjacent ascites gallbladder without calcified stone or mass. There is no splenomegaly. Pancreas, adrenal glands and kidneys are unremarkable do not see renal stone, hydronephrosis, hydroureter, ureteral stone or inflammatory changes adjacent to the kidneys or ureters. The aorta is without aneurysm. There is no periaortic other retroperitoneal or mesenteric pathologic sized lymph adenopathy. Colon shows no acute inflammatory change mass there just a couple of scattered diverticula. There is no perforation or free air. The bone windows show no compression deformity focal lesion in the spine or visible ribs. CT pelvis: Bone windows show the sacrum, SI joints, pelvis and hips to be unremarkable. There is sacralization of the transverse processes of L5 as anatomic variation. The uterus is anteverted and slightly tilted towards the right. It is not enlarged no adnexal mass or pelvic free fluid. The distal left colon, sigmoid and rectum are unremarkable. Appendix is seen and normal. The bladder shows no wall thickening, mass or stone and is adequately filled. There is no ventral or inguinal hernia nor pathologic sized inguinal adenopathy. IMPRESSION: Some borderline to mild hepatomegaly with fatty infiltration of the liver. No focal hepatic mass or biliary dilatation. No ascites. Kidneys show no stone, hydronephrosis, mass or inflammatory changes in the adjacent fat. Bladder also without stone or other abnormality. Appendix seen and normal. Colon and small bowel loops unremarkable. Otherwise negative CT abdomen and pelvis. <Electronically signed by Denny Urban > 11/15/20 0031
[2020-11-15 16:37] VITALS: BP 143/82
[2020-11-15] MEDS ORDERED: IBUP80TA PO (16:44)
[2020-11-15] MEDS ORDERED: ZOFR4TAB16 PO (16:44)
[2020-11-15 18:30] LABS: ERYTHROCYTE SEDIMENTATION RATE 1 mm/hr (0-20)
[2020-11-15 18:31] LABS: GC DNA AMPLIFICATION NEGATIVE (NEGATIVE)
[2020-11-15 18:32] LABS: C REACTIVE PROTEIN QUANTITATIV < 0.30 MG/DL (0.00-0.30); HEPATITIS A ANTIBODY IGM NEGATIVE (NEGATIVE); HEPATITIS B CORE ANTIBODY IGM NEGATIVE (NEGATIVE); HEPATITIS B SURFACE ANTIGEN NEGATIVE (NEGATIVE); IRON (FE) 197 UG/DL (50-170); RHEUMATOID FACTOR QUANT < 10.0 IU/ML (<15.0)
== END 2020-11-15 17:04 | disposition home or self-care (01) ==
LOC: M ED 12:30
DX: R10.11 Right upper quadrant pain (principal); B19.9 Unspecified viral hepatitis without hepatic coma; R16.0 Hepatomegaly, not elsewhere classified; K76.0 Fatty (change of) liver, not elsewhere classified; R03.0 Elevated blood-pressure reading, without diagnosis of hypertension; J45.909 Unspecified asthma, uncomplicated; G40.909 Epilepsy, unspecified, not intractable, without status epilepticus; K58.9 Irritable bowel syndrome, unspecified; F10.10 Alcohol abuse, uncomplicated; Z88.0 Allergy status to penicillin; Z88.1 Allergy status to other antibiotic agents; Z88.2 Allergy status to sulfonamides
CPT/HCPCS: 71046; 74176; 76705; 80048; 80076; 81001; 83540; 83690; 85025; 85652; 86140; 86431; 86705; 86709; 86803; 87340; 87661; 96361; 96374; 96375; 99284; J2270; J2405

== ENCOUNTER → 2020-11-18 | Outpatient (CLI) | payer OTHER ==
[~2020-11-18] MED LIST changes: +IBUP80TA PO; +PROHANCE 279.3MG/ML 15ML VIAL As Ordered ONE
--- NOTE | 2020-11-18 13:23 | REP ---
INDICATION: HIGH RISK BREAST SCREENING ABNORMALITY BREASTS. COMPARISON: Comparison mammography July 23, 2020. TECHNIQUE: [facility] MRI imaging was performed with a dedicated breast coil. Axial, coronal, and sagittal T1 and T2 weighted scans were obtained with and without fat saturation in the usual fashion. The study includes dynamically acquired post gadolinium-enhanced imaging with image subtraction. Maximum intensity projection and multi planar reformation imaging is included as well. This study is interpreted with the aid of [employer], an FDA approved computer aided detection (CAD) software program, on a dedicated breast MRI workstation. The gadolinium enhancement dose is 14 mL of intravenous ProHance. FINDINGS: There is a mild to moderate amount of fibroglandular tissue bilaterally corresponding with the mammographic pattern. There is minimal background parenchymal enhancement. There is no evidence of axillary lymphadenopathy or significant breast cystic change. High-resolution pre and post-contrast T1 and T2 weighted scans show no suspicious morphologic abnormality in either breast. Dynamically acquired sequential postcontrast images show no suspicious area of enhancement and washout kinetics in either breast to suggest malignancy. Subtraction images show no additional abnormality. IMPRESSION: BI-RADS category 1 negative bilateral breast MRI findings. <Electronically signed by Woody San > 11/18/20 [id number]
== END ==
LOC: M RAD 10:36
PROVIDERS: ATTEND Surgery
DX: L29.9 Pruritus, unspecified (principal); Z91.89 Other specified personal risk factors, not elsewhere classified
CPT/HCPCS: A9576; C8908

== ENCOUNTER → 2020-11-19 | Outpatient (REF) | payer OTHER ==
[~2020-11-19] MED LIST changes: -PROHANCE 279.3MG/ML 15ML VIAL As Ordered ONE
== END ==
LOC: M SFHCWAGY 18:38
PROVIDERS: ATTEND Advanced Practice Midwife
DX: Z12.4 Encounter for screening for malignant neoplasm of cervix (principal)

== ENCOUNTER → 2021-01-19 | Outpatient (REF) | payer OTHER | LOC: M LAB REF 16:22 | PROVIDERS: ATTEND Physician Assistant | DX: J06.9 Acute upper respiratory infection, unspecified (principal) ==

== ENCOUNTER → 2021-02-21 | Outpatient (REF) | payer OTHER ==
[2021-02-21 19:32] LABS: APPEARANCE, URINE CLEAR (CLEAR); BACTERIA, URINE AUTO NEGATIVE (NEGATIVE); BILIRUBIN, URINE AUTO NEGATIVE (NEGATIVE); BLOOD, URINE BLOOD NEGATIVE (NEGATIVE); COLOR, URINE AMBER (YELLOW); GLUCOSE, URINE (UA) AUTO NEGATIVE (NEGATIVE); KETONE, URINE AUTO NEGATIVE (NEGATIVE); LEUKOCYTE ESTERASE, URINE AUTO NEGATIVE (NEGATIVE); NITRITE, URINE AUTO POSITIVE (NEGATIVE); PROTEIN, URINE AUTO NEGATIVE (NEGATIVE); RBC, URINE AUTO 0 /HPF (0-3); SPECIFIC GRAVITY URINE AUTO 1.006 (1.002-1.035); SQUAMOUS EPITHELIAL CELL UR AU 2 /HPF (0-6); WBC, URINE AUTO 3 /HPF (0-3)
== END ==
LOC: M LAB REF 17:25
PROVIDERS: ATTEND Advanced Practice Midwife
DX: R30.0 Dysuria (principal)

== ENCOUNTER → 2021-04-18 | Outpatient (REF) | payer OTHER ==
[2021-04-18 18:03] LABS: APPEARANCE, URINE CLEAR (CLEAR); BACTERIA, URINE AUTO NEGATIVE (NEGATIVE); BILIRUBIN, URINE AUTO NEGATIVE (NEGATIVE); BLOOD, URINE BLOOD NEGATIVE (NEGATIVE); COLOR, URINE AMBER (YELLOW); GLUCOSE, URINE (UA) AUTO NEGATIVE (NEGATIVE); KETONE, URINE AUTO TRACE mg/dL (NEGATIVE); LEUKOCYTE ESTERASE, URINE AUTO TRACE (NEGATIVE); MUCUS, URINE SMALL (NEGATIVE); NITRITE, URINE AUTO NEGATIVE (NEGATIVE); PROTEIN, URINE AUTO 1+ mg/dL (NEGATIVE); RBC, URINE AUTO 1 /HPF (0-3); SQUAMOUS EPITHELIAL CELL UR AU 1 /HPF (0-6); WBC, URINE AUTO 10 /HPF (0-3)
== END ==
LOC: M SFHCWAGY 17:08
PROVIDERS: ATTEND Advanced Practice Midwife
DX: R30.0 Dysuria (principal)

== ENCOUNTER → 2021-04-18 | Outpatient (REF) | payer OTHER | LOC: M PLALAB 13:26 | PROVIDERS: ATTEND Advanced Practice Midwife | DX: Z53.20 Procedure and treatment not carried out because of patient's decision for unspecified reasons (principal) ==

== ENCOUNTER → 2021-07-26 | Outpatient (CLI) | payer OTHER | LOC: M WHC 09:01 | PROVIDERS: ATTEND Surgery | DX: Z12.31 Encounter for screening mammogram for malignant neoplasm of breast (principal); Z80.0 Family history of malignant neoplasm of digestive organs; Z80.3 Family history of malignant neoplasm of breast; Z80.41 Family history of malignant neoplasm of ovary; Z91.89 Other specified personal risk factors, not elsewhere classified ==

== ENCOUNTER → 2021-08-16 | Outpatient (CLI) | payer OTHER ==
[~2021-08-16] MED LIST changes: +BARIUM SULFATE 700 MG TABLET (E-Z-DISK) As Ordered ONE; +E-Z-PAQUE 96% w/w SUSP 176GM BTL As Ordered ONE; +VARIBAR NECTAR 40% w/v 240ML SUSP BTL As Ordered ONE; +VARIBAR PUDDING 40% w/v 230ML TUBE As Ordered ONE
== END ==
LOC: M RAD 09:58
PROVIDERS: ATTEND Otolaryngology
DX: K21.9 Gastro-esophageal reflux disease without esophagitis (principal)

== ENCOUNTER 2021-09-05 20:56 | Emergency (ER) | payer OTHER ==
[~2021-09-05] VITALS: Ht 157.5 cm; Wt 65.0 kg
[~2021-09-05 20:56] MED LIST changes: -BARIUM SULFATE 700 MG TABLET (E-Z-DISK) As Ordered ONE; -E-Z-PAQUE 96% w/w SUSP 176GM BTL As Ordered ONE; -VARIBAR NECTAR 40% w/v 240ML SUSP BTL As Ordered ONE; -VARIBAR PUDDING 40% w/v 230ML TUBE As Ordered ONE
[2021-09-06 00:17] LABS: HEMATOCRIT 36.8 % (36.0-47.0); HEMOGLOBIN 12.7 g/dl (12.0-15.5); MEAN CORPUSCULAR HEMOGLOBIN 32.7 pg (27.0-33.0); MEAN CORPUSCULAR HGB CONC 34.5 g/dl (32.0-36.5); MEAN CORPUSCULAR VOLUME 94.8 fl (80.0-96.0); PLATELET COUNT, AUTOMATED 244 10^3/uL (150-450); RED BLOOD COUNT 3.88 10^6/uL (4.00-5.40); WHITE BLOOD COUNT 5.7 10^3/uL (4.0-10.0)
[2021-09-06 00:31] LABS: RSV AMPLIFICATION NEGATIVE (NEGATIVE)
[2021-09-06 00:31] LABS: AMPHETAMINES LEVEL URINE NEGATIVE (NEGATIVE); BARBITURATES URINE NEGATIVE (NEGATIVE); BENZODIAZEPINES URINE NEGATIVE (NEGATIVE); CANNABINOIDS URINE NEGATIVE (NEGATIVE); COCAINE METABOLITE URINE NEGATIVE (NEGATIVE); METHADONE URINE NEGATIVE (NEGATIVE); OPIATES URINE NEGATIVE (NEGATIVE); PHENCYCLIDINE URINE NEGATIVE (NEGATIVE)
[2021-09-06 00:41] LABS: ACETAMINOPHEN LEVEL < 2.0 UG/ML (10.0-30.0); ALBUMIN 4.2 GM/DL (3.2-5.2); ALT/SGPT 54 U/L (12-78); BILIRUBIN,DIRECT 0.1 MG/DL (0.0-0.2); BILIRUBIN,TOTAL 0.3 MG/DL (0.2-1.0); BLOOD UREA NITROGEN 9 MG/DL (7-18); CALCIUM LEVEL 8.9 MG/DL (8.5-10.1); CARBON DIOXIDE LEVEL 31 MEQ/L (21-32); CHLORIDE LEVEL 106 MEQ/L (98-107); CREATININE FOR GFR 0.46 MG/DL (0.55-1.30); GLOMERULAR FILTRATION RATE > 60.0 (>60); GLUCOSE, FASTING 81 MG/DL (70-100); SALICYLATE LEVEL < 1.7 MG/DL (5.0-30.0); SODIUM LEVEL 142 MEQ/L (136-145); THYROID STIMULATING HORMONE 0.951 uIU/ML (0.358-3.740); TOTAL PROTEIN 7.3 GM/DL (6.4-8.2)
[2021-09-06 01:04] VITALS: BP 134/95
== END 2021-09-06 02:03 | disposition home or self-care (01) ==
LOC: M ED 20:56
DX: F43.20 Adjustment disorder, unspecified (principal); F10.229 Alcohol dependence with intoxication, unspecified; Y90.1 Blood alcohol level of 20-39 mg/100 ml; I10 Essential (primary) hypertension; K21.9 Gastro-esophageal reflux disease without esophagitis; Z79.899 Other long term (current) drug therapy; Z88.0 Allergy status to penicillin; Z88.1 Allergy status to other antibiotic agents; Z88.2 Allergy status to sulfonamides

== ENCOUNTER → 2021-10-13 | Outpatient (CLI) | payer OTHER ==
[~2021-10-13] MED LIST changes: +C-251TAB PO; +FOLI1TAB11; +HYDR-643; +LISI5TAB11; +MULTTAB20 PO; +OMEP40CA5; +PANT40TA29; +SERT25TA21
== END ==
LOC: M LABSMTC 09:48
PROVIDERS: ATTEND Anesthesiology
DX: Z01.818 Encounter for other preprocedural examination (principal); Z11.52 Encounter for screening for COVID-19

== ENCOUNTER 2021-10-18 12:14 | Day surgery (SDC) | payer OTHER ==
[~2021-10-18] VITALS: Ht 157.5 cm; Wt 59.8 kg
[~2021-10-18 12:14] MED LIST changes: +LIDOCAINE 2% 100MG/5ML SDV (FOR ANES.) As Ordered ONE; +NS 1,000 ML IV ONE; +fentaNYL 100 MCG/2 ML INJECTION As Ordered ONE; +propofoL 200 MG/20 ML VIAL As Ordered ONE
[2021-10-18] MEDS ORDERED: MIDAZOLAM INJ 2MG/2ML VIAL (J2250 PER 1MG) As Ordered ONE (12:40)
[2021-10-18 14:24] VITALS: BP 139/93
== END 2021-10-18 14:27 | disposition home or self-care (01) ==
LOC: M OPP 12:14
PROVIDERS: ATTEND Internal Medicine Gastroenterology
DX: R13.10 Dysphagia, unspecified (principal); R12 Heartburn; D13.0 Benign neoplasm of esophagus; I10 Essential (primary) hypertension; K58.9 Irritable bowel syndrome, unspecified; F41.9 Anxiety disorder, unspecified; F32.A Depression, unspecified; J45.909 Unspecified asthma, uncomplicated; Z88.0 Allergy status to penicillin; Z88.2 Allergy status to sulfonamides; Z88.8 Allergy status to other drugs, medicaments and biological substances; Z79.899 Other long term (current) drug therapy; Z83.3 Family history of diabetes mellitus; Z84.1 Family history of disorders of kidney and ureter; Z81.8 Family history of other mental and behavioral disorders; Z80.52 Family history of malignant neoplasm of bladder; Z80.0 Family history of malignant neoplasm of digestive organs; Z80.3 Family history of malignant neoplasm of breast; Z83.79 Family history of other diseases of the digestive system
CPT/HCPCS: 43239; 43450; 88305; J2250; J3010

== ENCOUNTER 2021-12-02 15:51 | Emergency (ER) | payer OTHER ==
[~2021-12-02] VITALS: Ht 61 cm; Wt 61.0 kg
[2021-12-02 15:57] VITALS: BP 143/93
== END 2021-12-02 17:55 | disposition left against medical advice (07) ==
LOC: EDSEX 15:51 → EDBD 15:51 → M ED 15:51
DX: Z53.29 Procedure and treatment not carried out because of patient's decision for other reasons (principal)

== ENCOUNTER → 2021-12-02 | Outpatient (CLI) | payer OTHER ==
[~2021-12-02] MED LIST changes: -LIDOCAINE 2% 100MG/5ML SDV (FOR ANES.) As Ordered ONE; -NS 1,000 ML IV ONE; -fentaNYL 100 MCG/2 ML INJECTION As Ordered ONE; -propofoL 200 MG/20 ML VIAL As Ordered ONE
== END ==
LOC: M WUC 09:17
PROVIDERS: ATTEND Nurse Practitioner Family
DX: R05.1 Acute cough (principal)

== ENCOUNTER 2021-12-12 11:49 | Inpatient (IN) | payer OTHER ==
[~2021-12-12] VITALS: Ht 157.5 cm; Wt 65.6 kg
[~2021-12-12 11:49] MED LIST changes: -HYDR-643; +HYDR-643 PO; -LISI5TAB11; +LISI5TAB11 PO; -OMEP40CA5; +OMEP40CA5 PO
[2021-12-12] MEDS ORDERED: MULTIVITAMIN -ADULT INJECTION 10 ML, THIAMINE INJection 100 MG, FOLIC ACID 1 MG in NS 1... IV ONE (12:20)
[2021-12-12] MEDS ORDERED: ACETAMINOPHEN TAB 650MG DOSE (2X325MG) PO ONE (12:20)
[2021-12-12] MEDS ORDERED: OXAZEPAM 15MG CAP PO ONE (12:20)
[2021-12-12 12:50] LABS: BASO % 0.8 % (0.0-1.0); EOS % 0.3 % (0.0-3.0); HEMOGLOBIN 13.1 g/dl (12.0-15.5); LYMPH # 0.1 10^3/uL (1.5-5.0); LYMPH % 3.4 % (24.0-44.0); MEAN CORPUSCULAR HEMOGLOBIN 33.6 pg (27.0-33.0); MEAN CORPUSCULAR HGB CONC 34.5 g/dl (32.0-36.5); MEAN CORPUSCULAR VOLUME 97.4 fl (80.0-96.0); MONO # 0.4 10^3/uL (0.0-0.8); MONO % 10.7 % (2.0-8.0); NEUTROPHILS % 84.2 % (36.0-66.0); PLATELET COUNT, AUTOMATED 109 10^3/uL (150-450); WHITE BLOOD COUNT 3.6 10^3/uL (4.0-10.0)
[2021-12-12 13:10] LABS: URINE PREG TEST NEGATIVE (NEGATIVE)
[2021-12-12 13:22] LABS: ALBUMIN 3.7 GM/DL (3.2-5.2); ALT/SGPT 155 U/L (12-78); BILIRUBIN,DIRECT 0.3 MG/DL (0.0-0.2); BILIRUBIN,TOTAL 0.8 MG/DL (0.2-1.0); BLOOD UREA NITROGEN 8 MG/DL (7-18); CALCIUM LEVEL 7.9 MG/DL (8.5-10.1); CARBON DIOXIDE LEVEL 22 MEQ/L (21-32); CHLORIDE LEVEL 102 MEQ/L (98-107); CREATININE FOR GFR 0.35 MG/DL (0.55-1.30); GLOMERULAR FILTRATION RATE > 60.0 (>60); GLUCOSE, FASTING 64 MG/DL (70-100); LIPASE 116 U/L (73-393); POTASSIUM SERUM 3.3 MEQ/L (3.5-5.1); SODIUM LEVEL 137 MEQ/L (136-145); TOTAL PROTEIN 6.8 GM/DL (6.4-8.2)
[2021-12-12] MEDS ORDERED: POTASSIUM CHLORIDE 10% LIQ 20 MEQ/15 ML UDC PO ONE (13:50)
[2021-12-12 13:59] LABS: BACTERIA, URINE SMALL AMOUNT; HYALINE CAST, URINE NONE SEEN /lpf (0-1); MUCUS, URINE SMALL AMOUNT (NEGATIVE); SQUAMOUS EPITHELIAL CELL URINE MOD AMOUNT /hpf (SMALL AMT)
[2021-12-12 14:00] LABS: AMORPHOUS SEDIMENT, URINE SMALL AMOUNT (NEGATIVE); TRANSITIONAL EPI CELLS, URINE SMALL AMOUNT /hpf
[2021-12-12] MEDS ORDERED: LevoFLOXacin IV 750 MG in IV 1 EA IV ONE (14:20)
[2021-12-12] MEDS ORDERED: VITA250C3 PO (15:18)
[2021-12-12] MEDS ORDERED: ZOLO100T PO (15:18)
[2021-12-12] MEDS ORDERED: HOME MED LIST COMPLETE! XX SCH (15:20)
[2021-12-12] MEDS ORDERED: NS 1,000 ML IV ONE (15:20)
[2021-12-12] MEDS: LORazepam 2 MG TAB PO PRN ×2 (16:21→20:40)
[2021-12-12] MEDS ORDERED: ALBUTEROL SULFATE 2.5 MG/0.5 ML INH NEB SOLN NEB PRN (16:25)
[2021-12-12 16:40] LABS: INR 0.9; PROTHROMBIN TIME 12.5 SECONDS (12.7-14.5)
[2021-12-12 16:41] LABS: PARTIAL THROMBOPLASTIN TIME 29.5 SECONDS (25.9-37.0)
[2021-12-12 16:57] VITALS: BP 134/99
[2021-12-12] MEDS: OXAZEPAM 15MG CAP PO SCH (18:47)
[2021-12-12 20:09] VITALS: BP 157/98
[2021-12-12 20:34] VITALS: BP 157/98
[2021-12-12] MEDS: SERTRALINE HCL 50 MG TAB PO SCH (20:39)
[2021-12-12] MEDS: HEPARIN SOD (PORCINE) 5000UNITS/ML 1ML VIAL/SYRINGE SQ SCH (20:39)
[2021-12-12] MEDS: THIAMINE 100 MG TAB PO SCH (20:39)
[2021-12-12] MEDS ORDERED: OXAZEPAM 15MG CAP PO SCH (22:00)
[2021-12-12] MEDS ORDERED: MIDAZOLAM INJ 2MG/2ML VIAL (J2250 PER 1MG) IV STA (22:12)
[2021-12-12] MEDS ORDERED: EPINEPHrine INJ 1 MG/ML 1ML AMP IM PRN (23:00)
[2021-12-12] MEDS ORDERED: diphenhydrAMINE 50MG/ML VIAL (J1200) IV PRN (23:00)
[2021-12-12] MEDS ORDERED: ALBUTEROL 90 MCG/ACT 8GM HFA INHALER INH PRN (23:00)
[2021-12-12] MEDS ORDERED: BEBTELOVIMAB 175MG 2ML VIAL (EUA) IV ONE ×2 (23:00)
[2021-12-12] MEDS: NS 1,000 ML IV SCH (23:00)
[2021-12-12] MEDS ORDERED: ALBUTEROL SULFATE 2.5 MG/0.5 ML INH NEB SOLN INH PRN (23:00)
[2021-12-12] MEDS ORDERED: methylPREDNISolone 125MG 2ML VIAL IV PRN (23:00)
[2021-12-12 23:35] VITALS: BP 143/95
[2021-12-13] VITALS (11 sets, daily range): BP systolic 119–141; BP diastolic 65–95
[2021-12-13] MEDS: OXAZEPAM 15MG CAP PO SCH ×5 (01:06→23:35)
[2021-12-13] MEDS: NS 1,000 ML IV SCH ×4 (02:54→21:20)
[2021-12-13] MEDS: HEPARIN SOD (PORCINE) 5000UNITS/ML 1ML VIAL/SYRINGE SQ SCH ×3 (05:12→22:00)
[2021-12-13 06:21] LABS: HEMATOCRIT 40.7 % (36.0-47.0); HEMOGLOBIN 13.3 g/dl (12.0-15.5); MEAN CORPUSCULAR HEMOGLOBIN 32.2 pg (27.0-33.0); MEAN CORPUSCULAR HGB CONC 32.7 g/dl (32.0-36.5); MEAN CORPUSCULAR VOLUME 98.5 fl (80.0-96.0); PLATELET COUNT, AUTOMATED 110 10^3/uL (150-450); RED BLOOD COUNT 4.13 10^6/uL (4.00-5.40)
[2021-12-13 06:35] LABS: BLOOD UREA NITROGEN 5 MG/DL (7-18); CALCIUM LEVEL 8.8 MG/DL (8.5-10.1); CARBON DIOXIDE LEVEL 25 MEQ/L (21-32); CHLORIDE LEVEL 97 MEQ/L (98-107); CREATININE FOR GFR 0.43 MG/DL (0.55-1.30); GLOMERULAR FILTRATION RATE > 60.0 (>60); GLUCOSE, FASTING 81 MG/DL (70-100); MAGNESIUM LEVEL 1.2 MG/DL (1.8-2.4); PHOSPHORUS LEVEL 2.7 MG/DL (2.5-4.9); POTASSIUM SERUM 3.9 MEQ/L (3.5-5.1); SODIUM LEVEL 132 MEQ/L (136-145)
[2021-12-13] MEDS: ASCORBIC ACID 250 MG TAB PO SCH (08:26)
[2021-12-13] MEDS: FOLIC ACID 1MG TAB PO SCH (08:26)
[2021-12-13] MEDS: MULTIVITAMINS/MINERALS THERAP 1 TAB PO SCH (08:26)
[2021-12-13] MEDS: MAG SULF 1GM/100ML (MAG RUN) 1 GM in IV 1 EA IV SCH ×2 (08:26→09:43)
[2021-12-13] MEDS: OMEPRAZOLE 20MG CAP PO SCH (08:27)
[2021-12-13] MEDS: lisinopriL 5 MG TAB PO SCH (08:27)
[2021-12-13] MEDS: THIAMINE 100 MG TAB PO SCH ×2 (08:27→20:33)
[2021-12-13] MEDS: cefTRIAXone SOD 1 GM in D5W MINI-BAG PLUS 50 ML IV SCH (10:50)
[2021-12-13 11:40] LABS: ALT/SGPT 201 U/L (12-78); BILIRUBIN,DIRECT 0.3 MG/DL (0.0-0.2); BILIRUBIN,TOTAL 0.8 MG/DL (0.2-1.0); TOTAL PROTEIN 7.7 GM/DL (6.4-8.2)
[2021-12-13] MEDS ORDERED: MAGNESIUM OXIDE 400MG TAB (MAG-OX) PO ONE (12:00)
[2021-12-13 16:53] LABS: INR 0.88; PROTHROMBIN TIME 12.3 SECONDS (12.7-14.5)
[2021-12-13 16:55] LABS: PARTIAL THROMBOPLASTIN TIME 46.3 SECONDS (25.9-37.0)
[2021-12-13 17:17] LABS: ACETAMINOPHEN LEVEL < 2.0 UG/ML (10.0-30.0)
[2021-12-13 18:11] LABS: HEPATITIS B SURFACE ANTIGEN NEGATIVE (NEGATIVE)
[2021-12-13 18:38] LABS: HEPATITIS C VIRUS ABY INDEX < 0.0 INDEX (<0.8)
[2021-12-13 18:39] LABS: HEPATITIS B CORE ANTIBODY IGM NEGATIVE (NEGATIVE)
[2021-12-13] MEDS: SERTRALINE HCL 50 MG TAB PO SCH (20:33)
[2021-12-14] VITALS (9 sets, daily range): BP systolic 115–130; BP diastolic 75–93
[2021-12-14] MEDS: NS 1,000 ML IV SCH ×2 (03:38→10:07)
[2021-12-14] MEDS: HEPARIN SOD (PORCINE) 5000UNITS/ML 1ML VIAL/SYRINGE SQ SCH ×3 (05:19→20:22)
[2021-12-14] MEDS: OXAZEPAM 15MG CAP PO SCH ×2 (05:20→12:49)
[2021-12-14 07:44] LABS: INR 0.81; PROTHROMBIN TIME 11.5 SECONDS (12.7-14.5)
[2021-12-14 07:45] LABS: PARTIAL THROMBOPLASTIN TIME 32.4 SECONDS (25.9-37.0)
[2021-12-14 07:50] LABS: ALBUMIN 3.5 GM/DL (3.2-5.2); ALT/SGPT 287 U/L (12-78); BILIRUBIN,TOTAL 0.6 MG/DL (0.2-1.0); BLOOD UREA NITROGEN 5 MG/DL (7-18); CALCIUM LEVEL 8.6 MG/DL (8.5-10.1); CARBON DIOXIDE LEVEL 27 MEQ/L (21-32); CHLORIDE LEVEL 102 MEQ/L (98-107); CREATININE FOR GFR 0.35 MG/DL (0.55-1.30); GLOMERULAR FILTRATION RATE > 60.0 (>60); GLUCOSE, FASTING 83 MG/DL (70-100); MAGNESIUM LEVEL 1.6 MG/DL (1.8-2.4); PHOSPHORUS LEVEL 3.6 MG/DL (2.5-4.9); POTASSIUM SERUM 3.7 MEQ/L (3.5-5.1); SODIUM LEVEL 136 MEQ/L (136-145); TOTAL PROTEIN 6.8 GM/DL (6.4-8.2)
[2021-12-14 08:31] LABS: BILIRUBIN,DIRECT 0.2 MG/DL (0.0-0.2)
[2021-12-14] MEDS: FOLIC ACID 1MG TAB PO SCH (10:08)
[2021-12-14] MEDS: ASCORBIC ACID 250 MG TAB PO SCH (10:08)
[2021-12-14] MEDS: OMEPRAZOLE 20MG CAP PO SCH (10:08)
[2021-12-14] MEDS: MULTIVITAMINS/MINERALS THERAP 1 TAB PO SCH (10:08)
[2021-12-14] MEDS: THIAMINE 100 MG TAB PO SCH ×2 (10:08→20:23)
[2021-12-14] MEDS: cefTRIAXone SOD 1 GM in D5W MINI-BAG PLUS 50 ML IV SCH (10:09)
[2021-12-14] MEDS: lisinopriL 5 MG TAB PO SCH (10:09)
[2021-12-14] MEDS ORDERED: OXAZEPAM 15MG CAP PO SCH (18:00)
[2021-12-14] MEDS: SERTRALINE HCL 50 MG TAB PO SCH (20:22)
[2021-12-15] VITALS (7 sets, daily range): BP systolic 115–129; BP diastolic 75–82
[2021-12-15] MEDS ORDERED: OXAZEPAM 15MG CAP PO SCH (02:00)
[2021-12-15] MEDS: HEPARIN SOD (PORCINE) 5000UNITS/ML 1ML VIAL/SYRINGE SQ SCH ×3 (05:18→21:09)
[2021-12-15 06:13] LABS: HEMATOCRIT 39.3 % (36.0-47.0); HEMOGLOBIN 13.3 g/dl (12.0-15.5); MEAN CORPUSCULAR HEMOGLOBIN 33.3 pg (27.0-33.0); MEAN CORPUSCULAR HGB CONC 33.8 g/dl (32.0-36.5); MEAN CORPUSCULAR VOLUME 98.3 fl (80.0-96.0); PLATELET COUNT, AUTOMATED 104 10^3/uL (150-450); WHITE BLOOD COUNT 2.6 10^3/uL (4.0-10.0)
[2021-12-15 06:44] LABS: ALBUMIN 3.5 GM/DL (3.2-5.2); ALT/SGPT 334 U/L (12-78); BILIRUBIN,TOTAL 0.8 MG/DL (0.2-1.0); BLOOD UREA NITROGEN 5 MG/DL (7-18); CALCIUM LEVEL 9.2 MG/DL (8.5-10.1); CARBON DIOXIDE LEVEL 31 MEQ/L (21-32); CHLORIDE LEVEL 98 MEQ/L (98-107); CREATININE FOR GFR 0.39 MG/DL (0.55-1.30); GLOMERULAR FILTRATION RATE > 60.0 (>60); GLUCOSE, FASTING 88 MG/DL (70-100); MAGNESIUM LEVEL 1.6 MG/DL (1.8-2.4); PHOSPHORUS LEVEL 4.8 MG/DL (2.5-4.9); POTASSIUM SERUM 3.6 MEQ/L (3.5-5.1); SODIUM LEVEL 137 MEQ/L (136-145); TOTAL PROTEIN 7.1 GM/DL (6.4-8.2)
[2021-12-15] MEDS: FOLIC ACID 1MG TAB PO SCH (09:00)
[2021-12-15] MEDS: MULTIVITAMINS/MINERALS THERAP 1 TAB PO SCH (09:16)
[2021-12-15] MEDS: THIAMINE 100 MG TAB PO SCH (09:16)
[2021-12-15] MEDS: cefTRIAXone SOD 1 GM in D5W MINI-BAG PLUS 50 ML IV SCH (09:16)
[2021-12-15] MEDS: OMEPRAZOLE 20MG CAP PO SCH (09:17)
[2021-12-15] MEDS: lisinopriL 5 MG TAB PO SCH (09:17)
[2021-12-15] MEDS: ASCORBIC ACID 250 MG TAB PO SCH (09:17)
[2021-12-15] MEDS: OXAZEPAM 15MG CAP PO SCH (13:53)
[2021-12-15] MEDS: SERTRALINE HCL 50 MG TAB PO SCH (21:09)
[2021-12-15] MEDS: MAG SULF 1GM/100ML (MAG RUN) 1 GM in IV 1 EA IV SCH (23:45)
[2021-12-16] MEDS: OXAZEPAM 15MG CAP PO SCH (01:00)
[2021-12-16] MEDS: MAG SULF 1GM/100ML (MAG RUN) 1 GM in IV 1 EA IV SCH (01:00)
[2021-12-16 04:00] VITALS: BP 118/77
[2021-12-16] MEDS: HEPARIN SOD (PORCINE) 5000UNITS/ML 1ML VIAL/SYRINGE SQ SCH (05:13)
[2021-12-16 06:30] LABS: ALBUMIN 3.6 GM/DL (3.2-5.2); ALT/SGPT 304 U/L (12-78); BILIRUBIN,TOTAL 0.7 MG/DL (0.2-1.0); BLOOD UREA NITROGEN 6 MG/DL (7-18); CALCIUM LEVEL 9.5 MG/DL (8.5-10.1); CARBON DIOXIDE LEVEL 32 MEQ/L (21-32); CHLORIDE LEVEL 97 MEQ/L (98-107); CREATININE FOR GFR 0.43 MG/DL (0.55-1.30); GLOMERULAR FILTRATION RATE > 60.0 (>60); GLUCOSE, FASTING 90 MG/DL (70-100); MAGNESIUM LEVEL 2.2 MG/DL (1.8-2.4); PHOSPHORUS LEVEL 5.2 MG/DL (2.5-4.9); POTASSIUM SERUM 4.1 MEQ/L (3.5-5.1); SODIUM LEVEL 136 MEQ/L (136-145); TOTAL PROTEIN 7.4 GM/DL (6.4-8.2)
[2021-12-16 08:00] VITALS: BP 121/79
[2021-12-16] MEDS: lisinopriL 5 MG TAB PO SCH (09:27)
[2021-12-16] MEDS: ASCORBIC ACID 250 MG TAB PO SCH (09:27)
[2021-12-16] MEDS: MULTIVITAMINS/MINERALS THERAP 1 TAB PO SCH (09:27)
[2021-12-16] MEDS: FOLIC ACID 1MG TAB PO SCH (09:27)
[2021-12-16] MEDS: OMEPRAZOLE 20MG CAP PO SCH (09:28)
[2021-12-16] MEDS: cefTRIAXone SOD 1 GM in D5W MINI-BAG PLUS 50 ML IV SCH (09:28)
== END 2021-12-16 13:02 | disposition home or self-care (01) | DRG 896 ==
LOC: EDBD 11:49 → M ED 11:49 → M ED INP 14:49 → ENRESERV 15:33 → M PCU 16:50
PROVIDERS: ADMIT Internal Medicine; ATTEND Internal Medicine
PROC: XW033H6 Introduction of Other New Technology Monoclonal Antibody into Peripheral Vein, Percutaneous Approach, New Technology Group 6 (ICD-10-PCS; principal; 2021-12-12)
DX: F10.239 Alcohol dependence with withdrawal, unspecified (principal); U07.1 COVID-19; N39.0 Urinary tract infection, site not specified; D72.819 Decreased white blood cell count, unspecified; R74.01 Elevation of levels of liver transaminase levels; I10 Essential (primary) hypertension; J45.909 Unspecified asthma, uncomplicated; Z87.440 Personal history of urinary (tract) infections; F32.A Depression, unspecified; F41.9 Anxiety disorder, unspecified; Z90.49 Acquired absence of other specified parts of digestive tract; Z79.899 Other long term (current) drug therapy; Z88.0 Allergy status to penicillin; Z88.1 Allergy status to other antibiotic agents; Z88.2 Allergy status to sulfonamides; R00.0 Tachycardia, unspecified; D69.6 Thrombocytopenia, unspecified; K70.9 Alcoholic liver disease, unspecified; K76.0 Fatty (change of) liver, not elsewhere classified

== ENCOUNTER → 2021-12-21 | Outpatient (CLI) | payer OTHER ==
[~2021-12-21] MED LIST changes: +VITA250C3 PO; +ZOLO100T PO
[2021-12-21 14:00] LABS: BASO # 0.1 10^3/uL (0.0-0.2); BASO % 1.5 % (0.0-1.0); EOS # 0.1 10^3/uL (0.0-0.5); EOS % 1.5 % (0.0-3.0); HEMATOCRIT 41.8 % (36.0-47.0); HEMOGLOBIN 14.2 g/dl (12.0-15.5); LYMPH # 1.7 10^3/uL (1.5-5.0); LYMPH % 41.8 % (24.0-44.0); MEAN CORPUSCULAR HEMOGLOBIN 33.8 pg (27.0-33.0); MEAN CORPUSCULAR VOLUME 99.5 fl (80.0-96.0); MONO # 0.6 10^3/uL (0.0-0.8); MONO % 14.1 % (2.0-8.0); NEUTROPHILS # 1.4 10^3/uL (1.5-8.5); NEUTROPHILS % 36.3 % (36.0-66.0); PLATELET COUNT, AUTOMATED 552 10^3/uL (150-450)
[2021-12-21 14:35] LABS: ALBUMIN 4.5 GM/DL (3.2-5.2); ALT/SGPT 235 U/L (12-78); BILIRUBIN,DIRECT 0.2 MG/DL (0.0-0.2); BILIRUBIN,TOTAL 0.3 MG/DL (0.2-1.0); BLOOD UREA NITROGEN 4 MG/DL (7-18); CALCIUM LEVEL 9.9 MG/DL (8.5-10.1); CARBON DIOXIDE LEVEL 28 MEQ/L (21-32); CHLORIDE LEVEL 97 MEQ/L (98-107); CREATININE FOR GFR 0.44 MG/DL (0.55-1.30); GLOMERULAR FILTRATION RATE > 60.0 (>60); GLUCOSE, FASTING 69 MG/DL (70-100); POTASSIUM SERUM 3.8 MEQ/L (3.5-5.1); SODIUM LEVEL 134 MEQ/L (136-145); TOTAL PROTEIN 8.2 GM/DL (6.4-8.2)
[2021-12-21 16:11] LABS: HIV 1&2 SCREEN CENTAUR NEGATIVE (NEGATIVE)
[2021-12-21 17:08] LABS: GC DNA AMPLIFICATION NEGATIVE (NEGATIVE)
[2021-12-22 07:07] LABS: HSV TYPE I IgG SPECIFIC <0.91 index (0.00-0.90); HSV TYPE II IgG SPECIFIC <0.91 index (0.00-0.90)
== END ==
LOC: M PLAIMG 11:16
PROVIDERS: ATTEND Nurse Practitioner Family
DX: U09.9 Post COVID-19 condition, unspecified (principal); Z11.3 Encounter for screening for infections with a predominantly sexual mode of transmission; R74.01 Elevation of levels of liver transaminase levels

== ENCOUNTER → 2022-05-05 | Outpatient (CLI) | payer OTHER ==
[~2022-05-05] MED LIST changes: +PROHANCE 279.3MG/ML 15ML VIAL ONE
== END ==
LOC: M PLAIMG 11:19
PROVIDERS: ATTEND Nurse Practitioner Women's Health
DX: Z91.89 Other specified personal risk factors, not elsewhere classified (principal)
CPT/HCPCS: A9576; C8908

== ENCOUNTER → 2022-05-29 | Outpatient (REF) | payer OTHER ==
[~2022-05-29] MED LIST changes: -PROHANCE 279.3MG/ML 15ML VIAL ONE
== END ==
LOC: M LAB REF 16:50
PROVIDERS: ATTEND Nurse Practitioner Family
DX: R35.0 Frequency of micturition (principal)

== ENCOUNTER → 2022-07-14 | Outpatient (CLI) | payer OTHER ==
[2022-07-14 17:17] LABS: BASO # 0.1 10^3/uL (0.0-0.2); BASO % 0.9 % (0.0-1.0); EOS # 0.1 10^3/uL (0.0-0.5); EOS % 2.2 % (0.0-3.0); HEMATOCRIT 40.8 % (36.0-47.0); LYMPH # 1.8 10^3/uL (1.5-5.0); LYMPH % 31.2 % (24.0-44.0); MEAN CORPUSCULAR HEMOGLOBIN 31.3 pg (27.0-33.0); MEAN CORPUSCULAR HGB CONC 31.9 g/dl (32.0-36.5); MEAN CORPUSCULAR VOLUME 98.1 fl (80.0-96.0); MONO # 0.6 10^3/uL (0.0-0.8); MONO % 10.3 % (2.0-8.0); NEUTROPHILS # 3.2 10^3/uL (1.5-8.5); NEUTROPHILS % 54.7 % (36.0-66.0); PLATELET COUNT, AUTOMATED 307 10^3/uL (150-450); RED BLOOD COUNT 4.16 10^6/uL (4.00-5.40); WHITE BLOOD COUNT 5.8 10^3/uL (4.0-10.0)
[2022-07-14 17:55] LABS: IRON (FE) 29 UG/DL (50-170); PERCENT SATURATION 9.7 % (13.2-45.0); TOTAL IRON BINDING CAPACITY 298 UG/DL (250-425)
[2022-07-14 18:24] LABS: ALBUMIN 4.2 G/DL (3.2-5.2); ALKALINE PHOSPHATASE 142 U/L (46-116); ALT/SGPT 26 U/L (7.0-40); AST/SGOT 35 U/L (<34); BILIRUBIN,TOTAL 0.3 MG/DL (0.3-1.2); BLOOD UREA NITROGEN 10 MG/DL (9-23); CARBON DIOXIDE LEVEL 28 MMOL/L (20-31); CHLORIDE LEVEL 97 MMOL/L (98-107); CREATININE FOR GFR 0.44 MG/DL (0.55-1.30); FOLATE > 24.00 NG/ML (>5.4); GLOMERULAR FILTRATION RATE > 60.0 (>60); GLUCOSE, FASTING 77 MG/DL (60-100); POTASSIUM SERUM 4.2 MMOL/L (3.5-5.1); SODIUM LEVEL 134 MMOL/L (136-145); TOTAL PROTEIN 7.2 G/DL (5.7-8.2); VITAMIN B12 LEVEL 548 PG/ML (211-911)
== END ==
LOC: M WUC 12:54
PROVIDERS: ATTEND Nurse Practitioner Family
DX: R74.01 Elevation of levels of liver transaminase levels (principal); F10.188 Alcohol abuse with other alcohol-induced disorder

== ENCOUNTER → 2022-10-16 | Outpatient (CLI) | payer OTHER, MEDICAID | LOC: M RAD 07:12 | PROVIDERS: ATTEND Registered Nurse | DX: K76.0 Fatty (change of) liver, not elsewhere classified (principal); F10.188 Alcohol abuse with other alcohol-induced disorder; R94.5 Abnormal results of liver function studies ==

== ENCOUNTER → 2023-02-15 | Outpatient (CLI) | payer BC | LOC: M OUTALCOH 07:45 | PROVIDERS: ATTEND Psychiatry & Neurology Psychiatry | DX: Z04.6 Encounter for general psychiatric examination, requested by authority (principal) ==

== ENCOUNTER 2023-02-26 14:00 | Outpatient (RCR) | payer BC | END 2023-02-27 | LOC: M OUTALCOH 14:00 | PROVIDERS: ATTEND Psychiatry & Neurology Psychiatry | DX: F10.20 Alcohol dependence, uncomplicated (principal) ==

== ENCOUNTER 2023-04-26 09:00 | Outpatient (RCR) | payer BC | END 2023-04-29 | LOC: M OUTALCOH 09:00 | PROVIDERS: ATTEND Psychiatry & Neurology Psychiatry | DX: F10.20 Alcohol dependence, uncomplicated (principal) ==

== ENCOUNTER → 2023-05-01 | Outpatient (REF) | payer BC | LOC: M LAB REF 17:12 | PROVIDERS: ATTEND Family Medicine | DX: R30.0 Dysuria (principal) ==

== ENCOUNTER 2023-05-28 16:00 | Outpatient (RCR) | payer BC | END 2023-05-30 | LOC: M OUTALCOH 16:00 | PROVIDERS: ATTEND Psychiatry & Neurology Psychiatry | DX: F10.20 Alcohol dependence, uncomplicated (principal) ==

== ENCOUNTER → 2023-06-26 | Outpatient (CLI) | payer BC ==
[2023-06-26 13:10] LABS: BASO % 0.5 % (0.0-1.0); EOS # 0.1 10^3/uL (0.0-0.5); EOS % 1.8 % (0.0-3.0); HEMATOCRIT 39.3 % (36.0-47.0); HEMOGLOBIN 13.1 g/dl (12.0-15.5); LYMPH # 1.4 10^3/uL (1.5-5.0); LYMPH % 21.5 % (24.0-44.0); MEAN CORPUSCULAR HEMOGLOBIN 28.6 pg (27.0-33.0); MEAN CORPUSCULAR HGB CONC 33.3 g/dl (32.0-36.5); MEAN CORPUSCULAR VOLUME 85.8 fl (80.0-96.0); MONO # 0.4 10^3/uL (0.0-0.8); MONO % 6.3 % (2.0-8.0); NEUTROPHILS # 4.6 10^3/uL (1.5-8.5); NEUTROPHILS % 69.4 % (36.0-66.0); PLATELET COUNT, AUTOMATED 386 10^3/uL (150-450); RED BLOOD COUNT 4.58 10^6/uL (4.00-5.40); WHITE BLOOD COUNT 6.6 10^3/uL (4.0-10.0)
[2023-06-26 13:32] LABS: ALBUMIN 3.9 G/DL (3.2-5.2); ALKALINE PHOSPHATASE 138 U/L (46-116); ALT/SGPT 13 U/L (7.0-40); AST/SGOT 17 U/L (<34); BILIRUBIN,TOTAL 0.5 MG/DL (0.3-1.2); BLOOD UREA NITROGEN 10 MG/DL (9-23); CALCIUM LEVEL 9.5 MG/DL (8.5-10.1); CARBON DIOXIDE LEVEL 26 MMOL/L (20-31); CHLORIDE LEVEL 109 MMOL/L (98-107); CHOLESTEROL LEVEL 245 MG/DL (<200); CHOLESTEROL RISK RATIO 3.76 (<5); CREATININE FOR GFR 0.56 MG/DL (0.55-1.30); FERRITIN 20.2 NG/ML (7.3-270.7); FOLATE 16.4 NG/ML (>5.4); GLOMERULAR FILTRATION RATE > 60.0 (>60); GLUCOSE, FASTING 84 MG/DL (60-100); IRON (FE) 48 UG/DL (50-170); LDL CHOLESTEROL 167.6 MG/DL (<100); PERCENT SATURATION 15.6 % (13.2-45.0); POTASSIUM SERUM 4.3 MMOL/L (3.5-5.1); SODIUM LEVEL 136 MMOL/L (136-145); TOTAL IRON BINDING CAPACITY 308 UG/DL (250-425); TOTAL PROTEIN 6.8 G/DL (5.7-8.2); TRIGLYCERIDES LEVEL 62 MG/DL (<150)
[2023-06-26 13:34] LABS: VITAMIN B12 LEVEL 512 PG/ML (211-911)
== END ==
LOC: M WUC 09:14
PROVIDERS: ATTEND Registered Nurse
DX: I10 Essential (primary) hypertension (principal); F10.21 Alcohol dependence, in remission

== ENCOUNTER → 2023-10-31 | Outpatient (CLI) | payer BC ==
[~2023-10-31] MED LIST changes: +ASCO250T16 PO; -VITA250C3 PO
[2023-10-31 12:06] LABS: BASO % 0.3 % (0.0-1.0); EOS # 0.1 10^3/uL (0.0-0.5); EOS % 2.1 % (0.0-3.0); HEMATOCRIT 38.3 % (36.0-47.0); HEMOGLOBIN 12.5 g/dl (12.0-15.5); LYMPH # 1.7 10^3/uL (1.5-5.0); LYMPH % 26.6 % (24.0-44.0); MEAN CORPUSCULAR HEMOGLOBIN 28.2 pg (27.0-33.0); MEAN CORPUSCULAR HGB CONC 32.6 g/dl (32.0-36.5); MEAN CORPUSCULAR VOLUME 86.5 fl (80.0-96.0); MONO # 0.4 10^3/uL (0.0-0.8); MONO % 7.1 % (2.0-8.0); NEUTROPHILS % 63.6 % (36.0-66.0); PLATELET COUNT, AUTOMATED 368 10^3/uL (150-450); RED BLOOD COUNT 4.43 10^6/uL (4.00-5.40); WHITE BLOOD COUNT 6.2 10^3/uL (4.0-10.0)
[2023-10-31 12:08] LABS: IRON (FE) 31 UG/DL (50-170); PERCENT SATURATION 10.4 % (13.2-45.0); TOTAL IRON BINDING CAPACITY 299 UG/DL (250-425)
[2023-10-31 12:09] LABS: ALBUMIN 3.8 G/DL (3.2-5.2); ALKALINE PHOSPHATASE 131 U/L (46-116); ALT/SGPT 14 U/L (7.0-40); AST/SGOT 11 U/L (<34); BILIRUBIN,TOTAL 0.4 MG/DL (0.3-1.2); BLOOD UREA NITROGEN 10 MG/DL (9-23); CALCIUM LEVEL 9.4 MG/DL (8.5-10.1); CARBON DIOXIDE LEVEL 27 MMOL/L (20-31); CHLORIDE LEVEL 106 MMOL/L (98-107); CREATININE FOR GFR 0.58 MG/DL (0.55-1.30); GLOMERULAR FILTRATION RATE > 60.0 (>60); GLUCOSE, FASTING 80 MG/DL (60-100); MAGNESIUM LEVEL 1.8 MG/DL (1.8-2.4); POTASSIUM SERUM 4.1 MMOL/L (3.5-5.1); SODIUM LEVEL 140 MMOL/L (136-145); TOTAL PROTEIN 6.5 G/DL (5.7-8.2)
[2023-10-31 12:12] LABS: THYROID STIMULATING HORMONE 1.074 uIU/ML (0.55-4.78)
[2023-10-31 12:13] LABS: FERRITIN 16.2 NG/ML (7.3-270.7); TOTAL 25(OH) VITAMIN D 33.7 NG/ML (20.0-100.0)
[2023-10-31 12:14] LABS: VITAMIN B12 LEVEL 524 PG/ML (211-911)
== END ==
LOC: M PLALAB 07:52
PROVIDERS: ATTEND Registered Nurse
DX: R53.83 Other fatigue (principal)

== ENCOUNTER → 2023-11-12 | Outpatient (REF) | payer BC | LOC: M LAB REF 17:43 | PROVIDERS: ATTEND Registered Nurse | DX: R30.0 Dysuria (principal) ==

== ENCOUNTER → 2024-04-08 | Outpatient (REF) | payer BC | LOC: M LAB REF 11:20 | PROVIDERS: ATTEND Physician Assistant | DX: R30.0 Dysuria (principal) ==

== ENCOUNTER → 2024-05-05 | Outpatient (CLI) | payer BC ==
[2024-05-05 10:34] LABS: BASO % 0.6 % (0.0-1.0); EOS # 0.2 10^3/uL (0.0-0.5); EOS % 2.7 % (0.0-3.0); HEMOGLOBIN 13.6 g/dl (12.0-15.5); LYMPH # 2.1 10^3/uL (1.5-5.0); MEAN CORPUSCULAR HEMOGLOBIN 28.4 pg (27.0-33.0); MEAN CORPUSCULAR HGB CONC 33.2 g/dl (32.0-36.5); MEAN CORPUSCULAR VOLUME 85.6 fl (80.0-96.0); MONO # 0.5 10^3/uL (0.0-0.8); MONO % 7.9 % (2.0-8.0); NEUTROPHILS # 3.8 10^3/uL (1.5-8.5); NEUTROPHILS % 57.1 % (36.0-66.0); PLATELET COUNT, AUTOMATED 373 10^3/uL (150-450); RED BLOOD COUNT 4.79 10^6/uL (4.00-5.40); WHITE BLOOD COUNT 6.7 10^3/uL (4.0-10.0)
[2024-05-05 10:40] LABS: FERRITIN 21.8 NG/ML (7.3-270.7); PERCENT SATURATION 25.9 % (13.2-45.0)
== END ==
LOC: M LAB 08:27 → M PLALAB 08:27
PROVIDERS: ATTEND Registered Nurse
DX: D50.9 Iron deficiency anemia, unspecified (principal); R35.0 Frequency of micturition

== ENCOUNTER → 2024-05-14 | Outpatient (REF) | payer BC | LOC: M LAB REF 16:58 | PROVIDERS: ATTEND Family Medicine | DX: R35.0 Frequency of micturition (principal) ==

== ENCOUNTER → 2024-05-21 | Outpatient (REF) | payer BC | LOC: M LAB REF 17:04 | PROVIDERS: ATTEND Family Medicine | DX: R35.0 Frequency of micturition (principal) ==

== ENCOUNTER 2024-08-06 17:26 | Emergency (ER) | payer OTHER, BC ==
[~2024-08-06] VITALS: Ht 160 cm; Wt 77.6 kg
[2024-08-06 18:35] LABS: HEMOGLOBIN 12.7 g/dl (12.0-15.5); MEAN CORPUSCULAR HEMOGLOBIN 29.3 pg (27.0-33.0); MEAN CORPUSCULAR HGB CONC 34.3 g/dl (32.0-36.5); MEAN CORPUSCULAR VOLUME 85.3 fl (80.0-96.0); PLATELET COUNT, AUTOMATED 325 10^3/uL (150-450); RED BLOOD COUNT 4.34 10^6/uL (4.00-5.40); WHITE BLOOD COUNT 7.7 10^3/uL (4.0-10.0)
[2024-08-06 18:55] LABS: PROTHROMBIN TIME 13.5 SECONDS (12.5-14.5)
[2024-08-06 18:58] LABS: BLOOD UREA NITROGEN 7 MG/DL (9-23); CALCIUM LEVEL 9.4 MG/DL (8.5-10.1); CARBON DIOXIDE LEVEL 30 MMOL/L (20-31); CHLORIDE LEVEL 106 MMOL/L (98-107); CREATININE FOR GFR 0.59 MG/DL (0.55-1.30); GLOMERULAR FILTRATION RATE > 90.0 (>60); GLUCOSE, FASTING 88 MG/DL (60-100); POTASSIUM SERUM 4.3 MMOL/L (3.5-5.1); SODIUM LEVEL 141 MMOL/L (136-145)
[2024-08-06 19:04] LABS: HCG, SERUM QUALITATIVE NEGATIVE (NEGATIVE)
[2024-08-06 19:13] LABS: ATYPICAL LYMPH 3 % (0-5); LYMPHOCYTES 30 % (16-44); MONOCYTES 2 % (0-5); NEUTROPHILS 65 % (28-66); PLATELET ESTIMATE NORMAL (NORMAL)
[2024-08-06 19:43] LABS: APPEARANCE, URINE CLEAR (CLEAR); BACTERIA, URINE AUTO NEGATIVE (NEGATIVE); BILIRUBIN, URINE AUTO NEGATIVE (NEGATIVE); BLOOD, URINE BLOOD NEGATIVE (NEGATIVE); COLOR, URINE COLORLESS (YELLOW); GLUCOSE, URINE (UA) AUTO NEGATIVE (NEGATIVE); KETONE, URINE AUTO NEGATIVE (NEGATIVE); LEUKOCYTE ESTERASE, URINE AUTO NEGATIVE (NEGATIVE); NITRITE, URINE AUTO NEGATIVE (NEGATIVE); PROTEIN, URINE AUTO NEGATIVE (NEGATIVE); RBC, URINE AUTO 0 /HPF (0-3); SPECIFIC GRAVITY URINE AUTO 1.003 (1.002-1.035); SQUAMOUS EPITHELIAL CELL UR AU 3 /HPF (0-6); UROBILINOGEN, URINE AUTO 0.2 mg/dL (0.0-2.0); WBC, URINE AUTO 1 /HPF (0-3)
[2024-08-06] MEDS ORDERED: ISOVUE-370 76% 100ML VIAL As Ordered ONE (19:56)
[2024-08-06 20:14] LABS: LIPASE 35 U/L (12-53)
[2024-08-06 20:16] LABS: ALBUMIN 3.7 G/DL (3.2-5.2); ALKALINE PHOSPHATASE 106 U/L (35-104); ALT/SGPT 14 U/L (7.0-40); AST/SGOT 13 U/L (<34); BILIRUBIN,DIRECT < 0.1 MG/DL (<0.4); BILIRUBIN,TOTAL 0.3 MG/DL (0.3-1.2); TOTAL PROTEIN 6.7 G/DL (5.7-8.2)
[2024-08-06] MEDS ORDERED: METH-1164 PO (21:12)
[2024-08-06 21:34] VITALS: BP 111/61; TEMP 98.2; O2SAT 100
== END 2024-08-06 21:41 | disposition home or self-care (01) ==
LOC: M ED 17:26
DX: S46.911A Strain of unspecified muscle, fascia and tendon at shoulder and upper arm level, right arm, initial encounter (principal); R10.9 Unspecified abdominal pain; Y92.9 Unspecified place or not applicable; Y93.9 Activity, unspecified; Y99.9 Unspecified external cause status; V49.40XA Driver injured in collision with unspecified motor vehicles in traffic accident, initial encounter; Z88.0 Allergy status to penicillin; Z88.2 Allergy status to sulfonamides; Z88.8 Allergy status to other drugs, medicaments and biological substances; Z79.899 Other long term (current) drug therapy
CPT/HCPCS: 36415; 70450; 72125; 73030; 74177; 80048; 80076; 81001; 83690; 84703; 85025; 85610; 86850; 86900; 86901; 99284; Q9967

== ENCOUNTER → 2024-11-03 | Outpatient (REF) | payer BC ==
[~2024-11-03] MED LIST changes: +METH-1164 PO
== END ==
LOC: M LAB REF 12:11
PROVIDERS: ATTEND Physician Assistant
DX: R30.0 Dysuria (principal)

== ENCOUNTER → 2024-11-05 | Outpatient (CLI) | payer BC | LOC: M PLALAB 07:17 | PROVIDERS: ATTEND Nurse Practitioner Family | DX: O03.9 Complete or unspecified spontaneous abortion without complication (principal) ==

== ENCOUNTER → 2024-11-12 | Outpatient (CLI) | payer BC | LOC: M PLALAB 08:07 | PROVIDERS: ATTEND Nurse Practitioner Family | DX: O03.9 Complete or unspecified spontaneous abortion without complication (principal) ==

== ENCOUNTER → 2024-12-15 | Outpatient (CLI) | payer BC | LOC: M WHC 09:13 | PROVIDERS: ATTEND Registered Nurse | DX: O03.9 Complete or unspecified spontaneous abortion without complication (principal); D25.1 Intramural leiomyoma of uterus ==

== ENCOUNTER → 2025-02-09 | Outpatient (REF) | payer BC ==
[2025-02-09 11:38] LABS: Trichomonas vaginalis (AMP) NOT DETECTED (NEGATIVE)
[2025-02-09 12:02] LABS: GC DNA AMPLIFICATION NEGATIVE (NEGATIVE)
== END ==
LOC: M PLALAB 08:41
PROVIDERS: ATTEND Nurse Practitioner Family
DX: Z34.80 Encounter for supervision of other normal pregnancy, unspecified trimester (principal)

== ENCOUNTER → 2025-02-09 | Outpatient (CLI) | payer BC ==
[2025-02-09 13:38] LABS: PLATELET COUNT, AUTOMATED 413 10^3/uL (150-450)
[2025-02-09 13:44] LABS: LDH LACTATE DEHYDROGENASE 152 U/L (120-246)
[2025-02-09 13:45] LABS: ALT/SGPT 20 U/L (7.0-40); AST/SGOT 20 U/L (<34); CREATININE FOR GFR 0.51 MG/DL (0.55-1.30); GLOMERULAR FILTRATION RATE > 90.0 (>60)
[2025-02-09 14:10] LABS: HIV 1&2 SCREEN NEGATIVE (NEGATIVE)
[2025-02-09 14:12] LABS: TOTAL PROTEIN,RANDOM URINE < 6.0 MG/DL (0.0-14.0)
[2025-02-09 14:18] LABS: HEPATITIS C VIRUS ABY INDEX 0.02 INDEX (<0.8)
[2025-02-11 14:06] LABS: HPV APTIMA Not Detected (Not Detected)
== END ==
LOC: M PLALAB 09:12
PROVIDERS: ATTEND Nurse Practitioner Family
DX: O09.521 Supervision of elderly multigravida, first trimester (principal); Z12.4 Encounter for screening for malignant neoplasm of cervix; N89.8 Other specified noninflammatory disorders of vagina
CPT/HCPCS: 36415; 82247; 82570; 83615; 84156; 84450; 84460; 84550; 85027; 86762; 86780; 86803; 86850; 86900; 86901; 87070; 87340; 87389; 87624; G0123

== ENCOUNTER → 2025-03-04 | Outpatient (CLI) | payer BC | LOC: M PLALAB 07:15 | PROVIDERS: ATTEND Nurse Practitioner Family | DX: O09.519 Supervision of elderly primigravida, unspecified trimester (principal) ==